=== PATIENT | female | born 1980 | race Caucasian/White ===

== ENCOUNTER 2018-03-29 07:00 | Outpatient (RCR) | payer SELFPAY ==
--- NOTE | 2018-01-19 10:33 | HP.PTEVAL_ITS ---
Patient's Visit Information MORIAH SHAW is a 37 year old F referred to Physical Therapy by [facility] Town [facility] with a diagnosis of SI pain, R shoulder hypomobility. Date of Evaluation: 01/12/18 Physical Therapist: Nabil Burk - Visit Plan Frequency: 2-3x /Week Duration: 4-6 Weeks Plan: Start with core/hip strengthening, lumbar/thoracic DN, thoracic mobility/ strengthening. SI stabilization. Progress to functional strenthening as tolerated. - Subjective Subjective: Pt. is here today for her initial evaluation with reports of increased SI, pelvic pain, but also decreased shoulder ROM on L side. Pt. reports having PT in [place] with focus on manual techniques, dry needling with slight exercises. Pt. moved here recently and has not been doing any exercises, I just forgot them. Pt. reports having frequent upslips of her pevis that causes L clavicle binding. Pt. does yoga fequently and is hopeful to get back to all exercises adn mobility without issues. - Pain L SI region Pain Intensity (Out of 10): 0 Pain Intensity Range: 0, 4 L shoulder Pain Intensity (Out of 10): 0 Pain Intensity Range: 0, 4 L gluteal region Pain Intensity (Out of 10): 0 Pain Intensity Range: 0, 4 - Objective POSTURE: Pt. has rounded shoulders, slgiht FH positioning. Pt. has slight increase in lumbar lordosis and anterior tilted pelvis, but no torsional effect. No upsliped noted. Pt. does have a slight lumbar scoliosis with increased thoracic muscle tissue on R side. PALPATION: Pt. has increased soreness to plaption or bilateral SI joints. Pt. has tenderness at R side of thoracic erector spinea (increased muscle girth noted). Pt. has not pain in L shoulder throughout. NEUROLOGICAL: Pt. has normal sensatino to light and sharp touch of bilateral LEs. PT. is able to rise on heels and toes without LOB. No upper or lower limb tension testing. ROM: Pt. has normal ankle/knee/hip ROM, normal lumbar ROM without increase in symptoms, except mild increase with lumbar ext. Pt. has excessive HS length and hip ER/IR length. MMT: RLE- ankle 5 /5 througout; knee 5/5 throughout; hip-flexion 4/5, abd 4/5, ext 4/5, ER 4/5, IR -4-/5. LLE- ankle/knee 5/5 throughout; hip- flexion 4+/5, abd 4/5, ext 4+/5 , ER 4+/5, IR 4/5. Core strength- fair-. GAIT: pt. has normal gait pattern without incerase in symptoms. Normal step length bilat, normal stair negotiation noted, no increase in pain. - Special Tests L/S Slump test left side: Negative L/S Slump test right side: Negative L/S Left Straight Leg Raise: Negative L/S Right Straight Leg Raise: Negative L/S Instability PA Test: Negative L/S Prone Instability Test: Positive Lumbar Standing: Flexion - Mechanical Response: No effect Lumbar Standing: Flexion - Symptoms During Testing: No effect Lumbar Standing: Flexion - Symptoms After Testing: No effect Lumbar Standing: Extension - Mechanical Response: No effect Lumbar Standing: Extension - Symptoms During Testing: Increases Lumbar Standing: Extension - Symptoms After Testing: No worse Lumbar Standing: Right Side Glides - Mechanical Response: No effect Lumbar Standing: Right Side Wilson - Symptoms During Testing: No effect Lumbar Standing: Right Side Wilson - Symptoms After Testing: No effect Lumbar Standing: Left Side Wilson - Mechanical Response: No effect Lumbar Standing: Left Side Wilson - Symptoms During Testing: No effect Lumbar Standing: Left Side Wilson - Symptoms After Testing: No effect - Goals Goal 1:: Pt. to be I with HEP. Goal Time Frame: 4-6 Weeks Goal 2:: Pt. to have no pain in SI region or lumbar spine with all exericse/ recreational activities. Goal Time Frame: 4-6 Weeks Goal 3:: Pt. to have full lumbar ROM without increase in symptoms. Goal Time Frame: 4-6 Weeks Goal 4:: Pt. to have increased B hip/core strength by 1/2 grade of all effected musculature reducing stress applied to these regions with all functional/ recreational mobility. Goal Time Frame: 4-6 Weeks - Rehabilitation Potential Physical Therapy Diagnosis: Pt. has signs and symptoms consistent with core weakness allowing for increaed instability at SI and lumbar spine. Pt. would benefit from PT to increase core/hip strength, reduce symptoms and instruct in proper body mechanics with all mobility/exercises. Rehabilitation Potential: Excellent - Anticipated Interventions Patient/Client Instruction: Educate patient on: Condition, Plan of Care, Risk Factors, Benefits of Fitness Program For the Purpose of:: To improve health and function, To foster healthy habits, To improve decision making, To facilitate caregiver knowledge, To improve self management, To prevent re-injury, To improve ability to perform tasks related to life management, To improve tolerance to ADL's Therapeutic Exercise to Include: Strength training, Power training, Balance training, Postural training, Flexibilty training, Passive ROM, Active ROM, Dynamic Lumbar Stabilization, Rafael Exercises For the Purpose of:: To decrease pain, To increase ROM, To improve muscle performance and motor function, To improve gait and locomotor functions, To decrease soft tissue restriction, To increase flexibility/ROM, To improve endurance, To improve balance Manual Therapy Techniques to Include: Mobilization, Manipulation, Passive ROM, Functional dry needling, Soft tissue mobilization For the Purpose of:: To decrease pain, To increase ROM, To improve nutrient delivery to tissue, To increase oxygenation perfusion, To improve muscle performance and motor function, To improve ability to perform ADL's IF ES: Yes For the Purpose of:: To decrease pain, To increase ROM, To improve nutrient delivery to tissue Thank you for the opportunity to evaluate your patient. For Medicare and Medicare HMO plans, please review the plan of care and approve it. It will need to be FAXED BACK to us at [phone] for Medicare purposes. Please let me know if there are questions or concerns regarding this plan of care. Physician Signature: Date:
--- NOTE | 2018-08-05 10:17 | HP.PTDCNRP_ITS ---
HP - Discharge Summary (1) - Patient Information MORIAH SHAW was seen in my office for initial evaluation on 01/12/18. The following Plan of Care was established for this patient: Initial Frequency: 2-3x /Week Initial Duration: 4-6 Weeks - Anticipated Interventions Patient/Client Instruction: Educate patient on: Condition, Plan of Care, Risk Factors, Benefits of Fitness Program For the Purpose of:: To improve health and function, To foster healthy habits, To improve decision making, To facilitate caregiver knowledge, To improve self management, To prevent re-injury, To improve ability to perform tasks related to life management, To improve tolerance to ADL's Therapeutic Exercise to Include: Strength training, Power training, Balance training, Postural training, Flexibilty training, Passive ROM, Active ROM, Dynamic Lumbar Stabilization, Rafael Exercises For the Purpose of:: To decrease pain, To increase ROM, To improve muscle performance and motor function, To improve gait and locomotor functions, To decrease soft tissue restriction, To increase flexibility/ROM, To improve endurance, To improve balance Manual Therapy Techniques to Include: Mobilization, Manipulation, Passive ROM, Functional dry needling, Soft tissue mobilization For the Purpose of:: To decrease pain, To increase ROM, To improve nutrient delivery to tissue, To increase oxygenation perfusion, To improve muscle performance and motor function, To improve ability to perform ADL's IF ES: Yes For the Purpose of:: To decrease pain, To increase ROM, To improve nutrient delivery to tissue This patient was last seen in our office . Pertinent comments regarding their Physical therapy will appear below: Patient has not attended physical therapy in over 4 months. Appropriate for d/ c at this time. At this point I will be discontinuing this patient from physical therapy. I would be happy to see this patient again in the future if found appropriate by the physician. Thank you! Germaine Leger
== END 2018-03-29 19:00 | disposition home or self-care (01) ==
LOC: PT 07:00
DX: R69 Illness, unspecified (principal)
CPT/HCPCS: 97162

== ENCOUNTER → 2018-10-04 12:06 | Outpatient (CLI) | payer OTHER, SELFPAY ==
[2018-10-04 13:58] LABS: Absolute Lymphocyte Count 2.17 X10^3/ul (0.83-4.51); Absolute Neutrophil Count 5.4 X10^3/uL (2.0-7.7); Basophil# 0.08 X10^3/uL; Basophil% 0.9 % (0-1); Eosinophil# 0.38 X10^3/uL; Eosinophils% 4.3 % (0-5); Hematocrit 40.6 % (37-47); Hemoglobin 13.3 g/dl (12.0-15.0); Lymphocyte # 2.17 X10^3/ul (4.0); Lymphocyte % 24.5 % (19-41); Mean Corp Hgb Conc 32.8 g/gl (32-36); Mean Corpuscular Hgb 29.2 pg (27.0-32.0); Mean Platelet Vol. 9.9 fl (6.2-12.0); Monocyte# 0.82 X10^3/uL; Monocyte% 9.3 % (0-10); Neutrophil # 5.38 X10^3/uL (2.7-7.7); Neutrophil % 60.7 % (47-70); Platelet Count 446 K/mm3 (150-450); RBC Distribution Width CV 12.2 % (11.6-14.6); RBC Distribution Width SD 39.3 fl (35.1-43.9); Red Blood Count 4.56 M/mm3 (4.2-5.4); White Blood Count 8.9 K/mm3 (4.4-11.0)
[2018-10-04 14:08] LABS: POSITIVE COUNT NO; POSITIVE DIFFERENTIAL NO; POSITIVE MORPHOLOGY NO
[2018-10-04 14:29] LABS: AST(SGOT) 24 U/L (15-37); Alanine Aminotransfer ALT/SGPT 43 U/L (13-56); Alkaline Phosphatase 72 U/L (45-117); Anion Gap 12 (5-15); BUN 8 mg/dL (7-18); Calcium,Total 8.9 mg/dL (8.5-10.1); Chloride 103 mmol/L (98-107); Cholesterol 185 mg/dL (200); EST Glomerular Filtration Rate 85 mL/min (>60); Est Glom Filt Rate - Afr Amer 102 mL/min (>60); Globulin 3.9 g/dL (2.2-4.2); Glucose 78 mg/dL (74-106); High Density Lipoprotein 45 mg/dL; Potassium 4.2 mmol/L (3.5-5.1); Protein, Total 7.9 g/dL (6.4-8.2); Sodium Level 138 mmol/L (136-145); T4 Free Direct 1.23 ng/dL (0.76-1.46); Thyroid Stim Hormone (TSH) 2.21 uIU/mL (0.358-3.74); Triglycerides 77 mg/dL; Very Low Density Lipoprotein 15 mg/dL (5-40)
== END ==
PROVIDERS: Family Provider Internal Medicine; PCP Internal Medicine; Referring Provider Internal Medicine; Visit Provider Internal Medicine
DX: E03.9 Hypothyroidism, unspecified (principal); R19.7 Diarrhea, unspecified
CPT/HCPCS: 36415; 80053; 80061; 84439; 84443; 85025

== ENCOUNTER → 2018-10-06 11:42 | Outpatient (CLI) | payer OTHER, SELFPAY | PROVIDERS: Family Provider Internal Medicine; PCP Internal Medicine; Referring Provider Internal Medicine; Visit Provider Internal Medicine | DX: R19.7 Diarrhea, unspecified (principal) | CPT/HCPCS: 87493 ==

== ENCOUNTER 2019-12-08 09:51 | Outpatient (RCR) | payer MEDICAID, SELFPAY ==
[2019-12-01 13:30] VITALS: BMI 23.2
--- NOTE | 2019-12-08 14:03 | HP.PTEVAL_ITS ---
Patient's Visit Information MORIAH SHAW is a 39 year old F referred to Physical Therapy by ANDREAS Dan with a diagnosis of LBP, SCOLIOSIS. Date of Evaluation: 12/08/19 Physical Therapist: Maura Noble PT, Cert MDT - Visit Plan Frequency: 2-3x /Week Duration: 4-6 Weeks Plan: LAND AND/OR AQUATIC THERAPY FOR PAIN RELIEF, POSTURE CORRECTION/STRENGTHENING, INSTRUCTION IN APPROPRIATE BODY MECHANICS AND ACTIVITY MODIFICATIONS. DLS STARTING WITH A NEUTRAL SPINE PROGRESSING ROM TOLERATED. BRITNEY LE ROM, STRETCHING AND STRENGTHENING. HEP INSTRUCTION. - Subjective Findings: GOES BY ANU. 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 Disability: NO. Present symptoms: LOW BACK SPASMS. INTERMITTENT LEFT THIGH LEG AND FOOT PAIN. PATIENT REPOERTS SHE HAS A HISTORY OF A LOT OF INSTABILITY IN HER BACK. Present since: ABOUT 10 DAYS AGO. Pain Scale: WORST 5/10, LEAT 0/10. Currently: 0/10. Commenced as a result of: FLARE UP DURING YOGA CLASS ABOUT 10 DAYS AGO. Symptoms at onset: LOW BACK PAIN LIMITING MOTION. Worse: ROTATION ESPECIALLY OPENING BODY UP, SOME YOGA POSES, RANDOM. Better: IBUPROFEN, HEAT, LYING IN A RECLINER WITH PILLOW UNDER KNEES, ICE, AVOIDING MOVING, CHIROPRACTIC ADJUSTMENTS. Disturbed sleep: NO. Previous history/Previous treatment: CUPPING, ROLFING, CHIROPRACTOR, EVERYTHING UNDER THE SUN, STRENGTH TRAINING, DRY NEEDLING, OSTEOPATHIC PT, RIGHT HIP IMPIN GEMENT, SCRAPING, ELECTRICAL STIM, TRACTION. NO INJECTIONS. NO BACK SURGERY. HAS NOT HAD A SPINE SURGICAL CONSULT. STATES HER MAIN FOCUS HAS BEEN ON HER HIPS WITH SPECIALISTS IN THE PAST. MUSCLE RELAXERS, STEROIDS AND CHIROPRACTOR ADJUSTMENTS THIS EPISODE. Coughing/sneezing/straining: POSITIVE. Gait: BACK ARCH'S BUT GETTING BETTER. Difficulty initiating urinatin: NO. Accidents: NO. Unexplained weight loss: NO. Imaging: NONE RECENT. MRI AT SOME POINT. PMH: HYPOTHYROIDISM. Recent major surgery: NO. PLOF (Prior Level of Function): PATIENT REPORTS THAT 2 WEEKS AGO BEFORE THE YOGA CLASS SHE WAS FUNCTIONING NORMALLY WITHOUT ANY LIMITATIONS. OTHER: I HAVE SCOLIOSIS. PATIENT REPORTS CHIROPRACTIC HAS BEEN THE SIGNIFICANT RELIEF. I HAVE STUFF GOING ON WITH MY SI JOINTS AND SACRUM. I AM SO IRRITATED AND GET EMOTIONAL BECAUSE I HAD AN EPISODE WITH THIS LAST FALL TOO. PATIENT REPORTS SHE EX'S DAILY WHEN ABLE. 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 - Objective Sitting/Standing Posture: SCOLIOSIS. LUMBAR EXTENSION. Active Correction of posture: INCREASES TIGHTNESS AROUND LEFT HIP AND IN LOW BACK. Other Observations: PATIENT STARTED CRYING DURING SUBJECTIVE PORTION OF EXAM EXPRESSING A LOT OF FRUSTRATION WITH HER CURRENT CONDITION. Motor deficit: BRITNEY LE'S 5/5 EXCEPT LEFT HIP FLEX 4/5 AND RIGHT HIP EXT AND ABD 4/5. Sensory deficit: ALTERED SENSATION OF LEFT LATERAL CALF COMPARED TO RIGHT. ROM deficit: BRITNEY LE'S WFL. Reflexes: 2/3 BRITNEY LE'S. Dural Signs: NEGATIVE RIGHT LE. POSITIVE LLE. Lumbar mvmt loss: flex - NIL - A LITTLE TIGHTNESS L LOW BACK ON RETURN. ext - MOD TO ENMANUEL - GETS PAINFUL IN THE MIDDLE OF LOW BACK. R SG - MIN. L SG - MOD TO ENMANUEL - PINCHING RIGHT AND CENTRAL LOW BACK. Palpation: NO ACUTE TENDERNESS WITH PALPATION OF LOWER THORACIC, LUMBAR, SACRAL, PELVIC OR HIP REGIONS. INCREASED MUSCLE TONE BRITNEY PARASPINALS. - Goals Goal 1:: DECREASE C/O BACK AND LE SX'S. Goal Time Frame: 4-6 Weeks Goal 2:: IMPROVE PERSONAL CARE, LIFTING, WALKING, SITTING, STANDING, SOCIAL LIFE, TRAVEL AND HOMEMAKING FUNCTION. Goal Time Frame: 4-6 Weeks Goal 3:: INSTRUCT IN PROPHYLAXIS Goal Time Frame: 4-6 Weeks - Rehabilitation Potential Rehabilitation Potential: Fair - Anticipated Interventions Patient/Client Instruction: Educate patient on: Condition, Plan of Care, Risk Factors, Benefits of Fitness Program For the Purpose of:: To improve self management Therapeutic Exercise to Include: Strength training, Body mechanics, Postural training, Flexibilty training, In an aquatic setting, Dynamic Lumbar Stabilization For the Purpose of:: To decrease pain, To increase ROM, To improve muscle performance and motor function, To increase tolerance to activity/condition/position, To improve ability of physical actions for home/community/work/leisure Thank you for the opportunity to evaluate your patient. For Medicare and Medicare HMO plans, please review the plan of care and approve it. It will need to be FAXED BACK to us at [phone] for Medicare purposes. For Medicare only, by signing this I certify the plan of care. Please let me know if there are questions or concerns regarding this plan of care. Physician Signature: Date:
--- NOTE | 2019-12-22 12:11 | HP.PTDCSUM ---
HP - PT D/C Summary It has been my pleasure to treat MORIAH SHAW under orders from Petros Henderson, ANA MARIA-C, for the diagnosis of LBP, SCOLIOSIS for a total of 1 visit(s). Discharge Date: Please see the following information for a summary of their discharge status. - Goals Goal 1:: DECREASE C/O BACK AND LE SX'S. Goal 2:: IMPROVE PERSONAL CARE, LIFTING, WALKING, SITTING, STANDING, SOCIAL LIFE, TRAVEL AND HOMEMAKING FUNCTION. Goal 3:: INSTRUCT IN PROPHYLAXIS - Plan Plan: LAND AND/OR AQUATIC THERAPY FOR PAIN RELIEF, POSTURE CORRECTION/STRENGTHENING, INSTRUCTION IN APPROPRIATE BODY MECHANICS AND ACTIVITY MODIFICATIONS. DLS STARTING WITH A NEUTRAL SPINE PROGRESSING ROM TOLERATED. BRITNEY LE ROM, STRETCHING AND STRENGTHENING. HEP INSTRUCTION. - D/C Information If there are questions or concerns regarding this patient's physical therapy, please feel free to call me at [phone]. Thank you for the referral of this patient. Sincerely, Maura Noble, PT, Cert MDT
== END 2019-12-08 19:00 | disposition home or self-care (01) ==
LOC: PT 09:51
PROVIDERS: Family Provider Internal Medicine; PCP Internal Medicine; Referring Provider Nurse Practitioner Family; Visit Provider Nurse Practitioner Family
DX: M54.5 Low back pain (principal); M41.9 Scoliosis, unspecified
CPT/HCPCS: 97162

== ENCOUNTER → 2019-12-08 11:43 | Outpatient (CLI) | payer MEDICAID, SELFPAY ==
[2019-12-01 13:30] VITALS: BMI 23.2
[2019-12-08 13:57] LABS: T4 Free Direct 1.26 ng/dL (0.76-1.46); Thyroid Stim Hormone (TSH) 2.32 uIU/mL (0.358-3.74)
== END ==
PROVIDERS: PCP Internal Medicine; Visit Provider Nurse Practitioner Family
DX: E03.9 Hypothyroidism, unspecified (principal); M54.5 Low back pain; M41.9 Scoliosis, unspecified
CPT/HCPCS: 36415; 84439; 84443; 97162

== ENCOUNTER → 2019-12-29 | Outpatient (CLI) | payer MEDICAID, SELFPAY ==
[2019-12-29 11:18] VITALS: BMI 23.2
--- NOTE | 2019-12-29 12:43 | RAD_ITS ---
STUDY: X-RAY - LEFT HAND, ATTENTION FOURTH FINGER REASON FOR EXAM: Female, 39 years old. Pain after a fall, unable to completely straighten TECHNIQUE: view(s) of the finger were obtained. COMPARISON: None. FINDINGS: Normal metacarpal head. Normal metacarpophalangeal joint. Normal proximal phalanx. Normal middle phalanx. Normal distal phalanx. Normal proximal interphalangeal joint. Normal distal interphalangeal joint. RAD/Finger(s) Min 2 Views IMPRESSION: Normal x-ray examination of the finger. Electronically Signed: Bernardino Benitez MD at 13:17 EST , Service support ,
== END | disposition home or self-care (01) ==
LOC: MTRAD 12:43
PROVIDERS: PCP Internal Medicine; Referring Provider Nurse Practitioner Family; Visit Provider Nurse Practitioner Family
DX: M79.645 Pain in left finger(s) (principal)
CPT/HCPCS: 73140

== ENCOUNTER → 2020-01-19 | Outpatient (CLI) | payer MEDICAID, SELFPAY ==
[2020-01-19 08:16] VITALS: BMI 23.2
[2020-01-19 12:37] LABS: Absolute Lymphocyte Count 2.18 X10^3/uL (0.83-4.51); Absolute Neutrophil Count 4.6 X10^3/uL (2.0-7.7); Basophil# 0.09 X10^3/uL; Basophil% 1.1 % (0-1); Eosinophil# 0.44 X10^3/uL; Eosinophils% 5.4 % (0-5); Hematocrit 39.3 % (37-47); Lymphocyte # 2.18 X10^3/ul (4.0); Lymphocyte % 26.8 % (19-41); Mean Corp Hgb Conc 33.1 g/dL (32-36); Mean Corpuscular Volume 90.8 fL (81-99); Mean Platelet Vol. 10.1 fl (6.2-12.0); Monocyte% 9.8 % (0-10); NRBC Flagged by Analyzer 0 % (0-5); Neutrophil # 4.58 X10^3/uL (2.7-7.7); Neutrophil % 56.4 % (47-70); Platelet Count 319 K/mm3 (150-450); RBC Distribution Width CV 12.1 % (11.6-14.6); RBC Distribution Width SD 40.1 fl (35.1-43.9); Red Blood Count 4.33 M/mm3 (4.2-5.4); White Blood Count 8.1 K/mm3 (4.4-11.0)
[2020-01-19 13:02] LABS: Anion Gap 5 (5-15); BUN 10 mg/dL (7-18); BUN/Creat Ratio 13.1 RATIO (10-20); Calcium,Total 8.8 mg/dL (8.5-10.1); Chloride 107 mmol/L (98-107); Cholesterol 166 mg/dL (200); Creatinine, Serum 0.76 mg/dL (0.55-1.02); EST Glomerular Filtration Rate 89 mL/min (>60); Est Glom Filt Rate - Afr Amer 108 mL/min (>60); Glucose 80 mg/dL (74-106); High Density Lipoprotein 58 mg/dL; Potassium 4.2 mmol/L (3.5-5.1); Sodium Level 139 mmol/L (136-145); Thyroid Stim Hormone (TSH) 1.53 uIU/mL (0.358-3.74); Triglycerides 58 mg/dL; Very Low Density Lipoprotein 12 mg/dL (5-40)
== END | disposition home or self-care (01) ==
LOC: BIMLAB 08:52
PROVIDERS: PCP Internal Medicine; Referring Provider Nurse Practitioner Family; Visit Provider Nurse Practitioner Family
DX: Z00.00 Encounter for general adult medical examination without abnormal findings (principal); E03.9 Hypothyroidism, unspecified
CPT/HCPCS: 36415; 80048; 80061; 84443; 85025

== ENCOUNTER 2020-01-26 10:31 | Outpatient (RCR) | payer MEDICAID, SELFPAY ==
[2020-01-19 08:16] VITALS: BMI 23.2
== END 2020-02-20 23:59 ==
LOC: NS 10:31
PROVIDERS: PCP Internal Medicine; Visit Provider Nurse Practitioner Family
DX: Z71.3 Dietary counseling and surveillance (principal); R63.5 Abnormal weight gain
CPT/HCPCS: 97802

== ENCOUNTER 2020-03-14 13:00 | Outpatient (RCR) | payer MEDICAID, SELFPAY ==
[2020-01-19 08:16] VITALS: BMI 23.2
== END 2020-03-21 23:59 ==
LOC: NS 13:00
PROVIDERS: PCP Internal Medicine; Visit Provider Nurse Practitioner Family
DX: Z71.3 Dietary counseling and surveillance (principal); R63.5 Abnormal weight gain
CPT/HCPCS: 97803

== ENCOUNTER 2020-04-09 13:00 | Outpatient (RCR) | payer MEDICAID, SELFPAY ==
[2020-01-19 08:16] VITALS: BMI 23.2
== END 2020-04-21 23:59 ==
LOC: NS 13:00
PROVIDERS: PCP Internal Medicine; Visit Provider Nurse Practitioner Family
DX: Z71.3 Dietary counseling and surveillance (principal); R63.5 Abnormal weight gain
CPT/HCPCS: 97803

== ENCOUNTER 2020-05-14 13:30 | Outpatient (RCR) | payer MEDICAID, SELFPAY ==
[2020-01-19 08:16] VITALS: BMI 23.2
== END 2020-05-21 23:59 ==
LOC: NS 13:30
PROVIDERS: PCP Internal Medicine; Visit Provider Nurse Practitioner Family
DX: Z71.3 Dietary counseling and surveillance (principal); R63.5 Abnormal weight gain
CPT/HCPCS: 97803

== ENCOUNTER 2020-06-11 13:30 | Outpatient (RCR) | payer MEDICAID, SELFPAY ==
[2020-01-19 08:16] VITALS: BMI 23.2
== END 2020-06-21 23:59 ==
LOC: NS 13:30
PROVIDERS: PCP Internal Medicine; Visit Provider Nurse Practitioner Family
DX: Z71.3 Dietary counseling and surveillance (principal); R63.5 Abnormal weight gain
CPT/HCPCS: 97803

== ENCOUNTER 2020-07-09 15:07 | Outpatient (RCR) | payer MEDICAID, SELFPAY ==
[2020-01-19 08:16] VITALS: BMI 23.2
== END 2020-07-22 23:59 ==
LOC: NS 15:07
PROVIDERS: PCP Internal Medicine; Visit Provider Nurse Practitioner Family
DX: Z71.3 Dietary counseling and surveillance (principal); R63.5 Abnormal weight gain
CPT/HCPCS: 97803

== ENCOUNTER → 2020-07-19 | Outpatient (CLI) | payer MEDICAID, SELFPAY ==
[2020-07-19 08:33] VITALS: BMI 23.2
[2020-07-19 11:55] LABS: Absolute Lymphocyte Count 1.81 X10^3/uL (0.83-4.51); Basophil# 0.12 X10^3/uL; Basophil% 1.5 % (0-1); Eosinophil# 0.42 X10^3/uL; Eosinophils% 5.1 % (0-5); Hematocrit 38.9 % (37-47); Hemoglobin 12.8 g/dL (12.0-15.0); Lymphocyte # 1.81 X10^3/ul (4.0); Lymphocyte % 22.1 % (19-41); Mean Corp Hgb Conc 32.9 g/dL (32-36); Mean Corpuscular Hgb 30.2 pg (27.0-32.0); Mean Corpuscular Volume 91.7 fL (81-99); Mean Platelet Vol. 10.6 fl (6.2-12.0); Monocyte# 0.79 X10^3/uL; Monocyte% 9.6 % (0-10); NRBC Flagged by Analyzer 0 % (0-5); Neutrophil # 5.02 X10^3/uL (2.7-7.7); Neutrophil % 61.2 % (47-70); Platelet Count 351 K/mm3 (150-450); RBC Distribution Width CV 12.2 % (11.6-14.6); RBC Distribution Width SD 40.3 fl (35.1-43.9); Red Blood Count 4.24 M/mm3 (4.2-5.4); White Blood Count 8.2 K/mm3 (4.4-11.0)
[2020-07-19 12:44] LABS: ALB/GLOB Ratio 1.2 RATIO (0.9-2.4); AST(SGOT) 13 U/L (15-37); Alanine Aminotransfer ALT/SGPT 17 U/L (13-56); Albumin, Serum 4.1 g/dL (3.2-5.0); Alkaline Phosphatase 61 U/L (45-117); Anion Gap 6 (5-15); BUN 8 mg/dL (7-18); BUN/Creat Ratio 10.6 RATIO (10-20); Calcium,Total 8.7 mg/dL (8.5-10.1); Chloride 108 mmol/L (98-107); Creatinine, Serum 0.75 mg/dL (0.55-1.02); EST Glomerular Filtration Rate 90 mL/min (>60); Est Glom Filt Rate - Afr Amer 109 mL/min (>60); Globulin 3.3 g/dL (2.2-4.2); Glucose 86 mg/dL (74-106); Potassium 4.5 mmol/L (3.5-5.1); Protein, Total 7.4 g/dL (6.4-8.2); Sodium Level 141 mmol/L (136-145); Thyroid Stim Hormone (TSH) 2.28 uIU/mL (0.358-3.74)
== END | disposition home or self-care (01) ==
LOC: BIMLAB 09:01
PROVIDERS: PCP Internal Medicine; Referring Provider Internal Medicine; Visit Provider Internal Medicine
DX: E03.9 Hypothyroidism, unspecified (principal); F32.9 Major depressive disorder, single episode, unspecified; F41.9 Anxiety disorder, unspecified
CPT/HCPCS: 36415; 80053; 84443; 85025

== ENCOUNTER 2020-07-23 14:18 | Outpatient (RCR) | payer MEDICAID, SELFPAY ==
[2020-07-19 08:33] VITALS: BMI 23.2
== END 2020-07-23 23:59 | disposition home or self-care (01) ==
LOC: NS 14:18
PROVIDERS: PCP Internal Medicine; Visit Provider Nurse Practitioner Family
DX: Z71.3 Dietary counseling and surveillance (principal); R63.5 Abnormal weight gain
CPT/HCPCS: 97803

== ENCOUNTER → 2021-08-04 15:01 | Outpatient (CLI) | payer MEDICAID, SELFPAY ==
[2021-08-04 16:43] LABS: Absolute Neutrophil Count 6.3 X10^3/uL (2.0-7.7); Eosinophil# 0.16 X10^3/uL; Eosinophils% 1.6 % (0-5); Hematocrit 39.4 % (37-47); Hemoglobin 12.8 g/dL (12.0-15.0); Lymphocyte % 22.7 % (19-41); Mean Corp Hgb Conc 32.5 g/dL (32-36); Mean Corpuscular Hgb 29.8 pg (27.0-32.0); Mean Corpuscular Volume 91.6 fL (81-99); Mean Platelet Vol. 10.6 fl (6.2-12.0); Monocyte# 0.88 X10^3/uL; Monocyte% 9.1 % (0-10); NRBC Flagged by Analyzer 0 % (0-5); Neutrophil # 6.32 X10^3/uL (2.7-7.7); Neutrophil % 65.1 % (47-70); Platelet Count 340 K/mm3 (150-450); RBC Distribution Width SD 40.4 fl (35.1-43.9); White Blood Count 9.7 K/mm3 (4.4-11.0)
[2021-08-04 17:21] LABS: AST(SGOT) 20 U/L (15-37); Alanine Aminotransfer ALT/SGPT 27 U/L (13-56); Albumin, Serum 3.7 g/dL (3.2-5.0); Alkaline Phosphatase 64 U/L (45-117); Anion Gap 8 (5-15); BUN 12 mg/dL (7-18); Calcium,Total 8.5 mg/dL (8.5-10.1); Chloride 105 mmol/L (98-107); Cholesterol 152 mg/dL (200); Creatinine, Serum 0.92 mg/dL (0.55-1.02); EST Glomerular Filtration Rate 71 mL/min (>60); Est Glom Filt Rate - Afr Amer 86 mL/min (>60); Globulin 3.6 g/dL (2.2-4.2); Glucose 92 mg/dL (74-106); High Density Lipoprotein 55 mg/dL; Potassium 3.7 mmol/L (3.5-5.1); Protein, Total 7.3 g/dL (6.4-8.2); Sodium Level 138 mmol/L (136-145); Thyroid Stim Hormone (TSH) 1.49 uIU/mL (0.358-3.74); Triglycerides 86 mg/dL; Very Low Density Lipoprotein 17 mg/dL (5-40)
== END ==
PROVIDERS: PCP Internal Medicine; Visit Provider Internal Medicine
DX: E03.9 Hypothyroidism, unspecified (principal); F32.9 Major depressive disorder, single episode, unspecified; F41.9 Anxiety disorder, unspecified
CPT/HCPCS: 36415; 80053; 80061; 84443; 85025

== ENCOUNTER → 2022-04-21 | Outpatient (CLI) | payer OTHER, SELFPAY ==
[2022-04-21 13:51] LABS: Bacteria 0 SEEN /hpf (None Seen); Mucous, Urine 0 SEEN /hpf (<or=2+); Red Blood Cells-Urine 0 SEEN /hpf (0-5); Squamous Epithelial Cells - UA 0 SEEN /hpf (5-10); White Blood Cells 0 SEEN /hpf (0-5)
[2022-04-21 14:52] LABS: Color, Urine Straw (Yellow); Glucose, Dipstick Normal (Normal); Ketone-Dipstick Negative (Negative); Leukocyte Esterase-Dipstick Negative /ul (Negative); Nitrite-Dipstick Negative (Negative); Occult Blood-Urine Negative /ul (Negative); Protein-Dipstick Negative (Negative); Urine Bilirubin Dipstick Negative (Negative); Urine Clarity Clear (Clear); Urine Urobilinogen Normal (Normal); Urine pH 6.5 (5.0 - 8.0)
[2022-04-21 14:53] LABS: Absolute Lymphocyte Count 3.16 X10^3/uL (0.83-4.51); Absolute Neutrophil Count 10.2 X10^3/uL (2.0-7.7); Basophil# 0.12 X10^3/uL; Basophil% 0.8 % (0-1); Eosinophil# 0.26 X10^3/uL; Eosinophils% 1.7 % (0-5); Hematocrit 38.4 % (37-47); Hemoglobin 13.1 g/dL (12.0-15.0); Lymphocyte # 3.16 X10^3/ul (0.83-4.51); Lymphocyte % 20.4 % (19-41); Mean Corp Hgb Conc 34.1 g/dL (32-36); Mean Corpuscular Hgb 30.8 pg (27.0-32.0); Mean Corpuscular Volume 90.4 fL (81-99); Mean Platelet Vol. 10.5 fl (6.2-12.0); Monocyte# 1.63 X10^3/uL; Monocyte% 10.5 % (0-10); NRBC Flagged by Analyzer 0 % (0-5); Neutrophil # 10.18 X10^3/uL (2.7-7.7); Neutrophil % 65.7 % (47-70); POSITIVE DIFFERENTIAL YES; Platelet Count 345 K/mm3 (150-450); RBC Distribution Width SD 39.4 fl (35.1-43.9); Red Blood Count 4.25 M/mm3 (4.2-5.4); White Blood Count 15.5 K/mm3 (4.4-11.0)
[2022-04-21 15:05] LABS: Differential Indicated SCAN CRITERIA MET
[2022-04-21 15:10] LABS: ALB/GLOB Ratio 1.2 RATIO (0.9-2.4); AST(SGOT) 14 U/L (15-37); Alanine Aminotransfer ALT/SGPT 18 U/L (13-56); Albumin, Serum 3.9 g/dL (3.2-5.0); Alkaline Phosphatase 58 U/L (45-117); Amylase 43 U/L (25-115); Anion Gap 8 (5-15); BUN 11 mg/dL (7-18); BUN/Creat Ratio 13.6 RATIO (10-20); Calcium,Total 8.6 mg/dL (8.5-10.1); Chloride 103 mmol/L (98-107); Creatinine, Serum 0.81 mg/dL (0.55-1.02); EST Glomerular Filtration Rate 83 mL/min (>60); Est Glom Filt Rate - Afr Amer 100 mL/min (>60); Globulin 3.3 g/dL (2.2-4.2); Glucose 83 mg/dL (74-106); Lipase 94 U/L (73-393); Potassium 3.6 mmol/L (3.5-5.1); Protein, Total 7.2 g/dL (6.4-8.2); Sodium Level 136 mmol/L (136-145)
[2022-04-21 15:49] LABS: Anisocytosis RARE; Macrocytosis RARE; Platelet Estimate ADEQUATE (ADEQ); Red Cell Morphology N CHROM NORMAL (NORM C&C)
[2022-04-23 11:25] LABS: Pathologist Review Reviewed
== END | disposition home or self-care (01) ==
PROVIDERS: PCP Internal Medicine; Visit Provider Physician Assistant
DX: R10.9 Unspecified abdominal pain (principal); R11.10 Vomiting, unspecified
CPT/HCPCS: 36415; 80053; 81001; 82150; 83690; 85025

== ENCOUNTER 2022-04-23 14:12 | Observation (INO) | payer OTHER, SELFPAY ==
[2022-04-23] VITALS (13 sets, daily range): BP systolic 107–128; BP diastolic 56–89; PULSE 54–86; RESP 16–18; TEMP 36.3–37.2; O2SAT 95–100; BMI 26.9
--- NOTE | 2022-04-23 14:44 | EDS_ITS ---
HPI History of Present Illness Chief Complaint: Abd Pain Informant: patient Narrative Narrative: Patient presents with right lower quadrant pain. She states this started Wednesday evening. She was not sure if she was hungry so she ate. But this worsened it. She ended up having some nausea and vomiting. She felt warm but did not have a documented fever. She saw her physician on Wednesday. Blood work was done that showed an elevated white count. They have been arguing with insurance to get a CT scan as an outpatient. She had this today that showed signs of appendicitis. She states the pain is just kind of stayed aching in the right lower quadrant. She is not having so much vomiting now but still has poor appetite. Pain is not worsening but not improving. No prior abdominal surgery. Pressing on it or eating makes it worse. Nothing really makes it better. PFSH PFS Medical History Abdominal pain Depression Elevated blood pressure reading without diagnosis of hypertension Hypothyroid Hypothyroidism Muscle spasm Scoliosis Seasonal allergies Home Medications lactobacillus combination no.9 4 billion cell capsule PO 07/19/20 [History Last Taken Unknown] multivitamin 1 cap PO DAILY 07/19/20 [History Last Taken Unknown] bupropion HCl 100 mg tablet,12 hr sustained-release 100 mg PO Q12H #180 ea 11/10/21 [Rx Last Taken Unknown] levothyroxine 50 mcg tablet 50 mcg PO DAILY #90 tab 11/10/21 [Rx Last Taken Unknown] buspirone 5 mg tablet 5 mg PO BID #180 tab 12/09/21 [Rx Last Taken Unknown] methylprednisolone 4 mg tablets in a dose pack See Rx Instructions PO PER PKG DIR #21 tab 04/17/22 [Rx Last Taken Unknown] Allergy/AdvReac Type Severity Reaction Status Date / Time mold Allergy Unknown Unknown Verified 04/23/22 14:13 ragweed pollen Allergy Unknown Unknown Verified 04/23/22 14:13 Family History Mother Arthritis Grandmother Arthritis Colon cancer Osteoporosis Parkinson disease Skin cancer Diabetes Grandfather Colon cancer Skin cancer Diabetes Grandmother Depression Heart disease Mental disorder COPD (chronic obstructive pulmonary disease) Grandfather Cancer Brother small cell adenocarcinoma Surgical History History of arthroscopic knee surgery History of tonsillectomy Social History Smoking Status: Never smoker alcohol intake: current alcohol intake frequency: a few times a week Alcohol type: wine substance use type: does not use what type of physical activity do you participate in: none ROS ROS ED Constitutional Constitutional ED: Reports subjective ENT ENT ED: Denies rhinorrhea Cardiovascular Cardiovascular: Denies chest pain or palpitations Respiratory/Chest Respiratory/Chest: Denies cough or dyspnea Gastrointestinal Gastrointestinal: Reports abdominal pain, nausea and vomiting; Denies diarrhea Genitourinary Genitourinary ED: Denies dysuria Musculoskeletal Musculoskeletal: Denies myalgias Integumentary Denies rash Neurologic Neurologic: Denies headache(s) Psychiatric Psychiatric: Reports depression Endocrine Endocrinology: Denies polydipsia or polyuria Allergic/Immunologic Allergic/Immunologic ED: Denies urticaria EXAM Physical Exam Const Vital Signs: 04/23/22 14:14 04/23/22 14:46 04/23/22 15:02 Temperature 98.3 F 98.9 F 98.9 F Temperature Source Temporal Temporal Temporal Pulse Rate 74 68 72 Respiratory Rate 18 16 16 Blood Pressure 128/89 H 125/77 H 122/74 H Blood Pressure Mean 102 93 90 Blood Pressure Source Monitor Blood Pressure Position Semi-Fowlers Blood Pressure Location Left Arm Pulse Ox 98 98 98 Oxygen Delivery Method Room Air Room Air Room Air 04/23/22 15:20 04/23/22 15:24 Temperature 98.4 F 98.9 F Temperature Source Temporal Temporal Pulse Rate 86 72 Respiratory Rate 16 16 Blood Pressure 126/72 H 126/78 H Blood Pressure Mean 90 94 Blood Pressure Source Blood Pressure Position Blood Pressure Location Pulse Ox 98 99 Oxygen Delivery Method Room Air Room Air Positive well nourished and well developed General Appearance ED: well developed and NAD; Negative for cyanotic or diaphoretic HEENT Reports moist mucous membranes Eyes General Eye ED: Negative for pale conjunctiva or scleral icterus Resp normal respiratory effort and clear to auscultation bilaterally Cardio regular rate and regular rhythm GI normal to inspection, nondistended, normoactive bowel sounds GI Narrative: Patient does have mild tenderness to right lower quadrant. No rebounding and no guarding. Bowel sounds still sound normal. Palpation: soft Back/Spine no CVA tenderness Neuro oriented x3 Sensorium / Orientation: alert Psych mental status grossly normal Skin no rashes or lesions noted MDM MDM MDM Narrative Medical decision making narrative: I did look at the patient's blood work from couple days ago. We will will repeat some of this here today. I looked at her scan images. She does have a slightly enlarged appendix with slight stranding. I discussed case with Dr. Cedillo. He requested EKG and COVID. These and repeat blood work are pending. Plan is surgery. Lab Data Attestation: I reviewed the patient's lab results. Labs: Laboratory Results - last 24 hr 04/23/22 04/23/22 04/23/22 14:45 14:45 14:45 WBC 11.9 H RBC 4.56 Hgb 13.9 Hct 41.4 MCV 90.8 MCH 30.5 MCHC 33.6 RDW Std Deviation 39.0 RDW Coeff of Miladys 11.8 Plt Count 403 MPV 9.9 Immature Gran % (Auto) 0.700 Neut % (Auto) 54.0 Lymph % (Auto) 32.9 [place] % (Auto) 9.0 Eos % (Auto) 2.4 Baso % (Auto) 1.0 Absolute Neuts (auto) 6.4 Absolute Lymphs (auto) 3.92 Nucleated RBC % 0 Sodium 138 Potassium 3.5 Chloride 103 Carbon Dioxide 27.0 Anion Gap 8 BUN 9 Creatinine 0.80 Estim Creat Clear Calc 89.08 Est GFR (MDRD) Af Amer 101 Est GFR (MDRD) Non-Af 83 BUN/Creatinine Ratio 11.2 Glucose 89 Calcium 8.7 Serum , Qual NEGATIVE Urine Color Urine Clarity Urine pH Ur Specific Margie Urine Protein Urine Glucose (UA) Urine Ketones Urine Occult Blood Urine Nitrite Urine Bilirubin Urine Urobilinogen Ur Leukocyte Esterase Urine RBC Urine WBC Ur Squamous Epith Cells Urine Bacteria Urine Mucus 04/23/22 14:45 WBC RBC Hgb Hct MCV MCH MCHC RDW Std Deviation RDW Coeff of Miladys Plt Count MPV Immature Gran % (Auto) Neut % (Auto) Lymph % (Auto) [place] % (Auto) Eos % (Auto) Baso % (Auto) Absolute Neuts (auto) Absolute Lymphs (auto) Nucleated RBC % Sodium Potassium Chloride Carbon Dioxide Anion Gap BUN Creatinine Estim Creat Clear Calc Est GFR (MDRD) Af Amer Est GFR (MDRD) Non-Af BUN/Creatinine Ratio Glucose Calcium Serum , Qual Urine Color Straw Urine Clarity Clear Urine pH 6.5 Ur Specific Margie 1.005 Urine Protein 15 H Urine Glucose (UA) Normal Urine Ketones 50 H Urine Occult Blood Negative Urine Nitrite Negative Urine Bilirubin Negative Urine Urobilinogen Normal Ur Leukocyte Esterase Negative Urine RBC 0 SEEN Urine WBC 0 SEEN Ur Squamous Epith Cells 0 SEEN Urine Bacteria 0 SEEN Urine Mucus 0 SEEN EKG Initial EKG: Comments: EKG done as part of preop orders read by me shows normal sinus rhythm with slight sinus arrhythmia. Overall rate of 62. No ventricular ectopy. OH interval, QRS duration and QTc normal. Discharge Plan Dx/Rx/DC Orders Clinical Impression: Acute appendicitis Disposition Disposition: Acute Care Hospital [facility] Discharge Date/Time: 04/23/22 15:34
--- NOTE | 2022-04-23 14:48 | EKG12_ITS ---
Test Reason : Blood Pressure : / mmHG Vent. Rate : 062 BPM Atrial Rate : 062 BPM P-R Int : 130 ms QRS Dur : 080 ms QT Int : 450 ms P-R-T Axes : 063 069 041 degrees QTc Int : 456 ms Normal sinus rhythm with sinus arrhythmia Normal ECG Confirmed by GAEL PANCHAL, DAX ([id number]), editor publications CRISTO JENKINS ([id number]) on 04/27/2022 12:50:02 PM Referred By: WILL Confirmed By:DAX MAYO MD
--- NOTE | 2022-04-23 14:50 | NURSING ---
NO OLD EKGS
[2022-04-23] MEDS: 0.9% Normal Saline 1,000 ML 1000 ML IV (14:55)
[2022-04-23 15:02] LABS: Bacteria 0 SEEN /hpf (None Seen); Mucous, Urine 0 SEEN /hpf (<or=2+); Red Blood Cells-Urine 0 SEEN /hpf (0-5); Squamous Epithelial Cells - UA 0 SEEN /hpf (5-10); White Blood Cells 0 SEEN /hpf (0-5)
--- NOTE | 2022-04-23 15:03 | NURSING ---
[facility] [place] [facility]
[2022-04-23 15:09] LABS: Absolute Lymphocyte Count 3.92 X10^3/uL (0.83-4.51); Absolute Neutrophil Count 6.4 X10^3/uL (2.0-7.7); Basophil# 0.12 X10^3/uL; Eosinophil# 0.28 X10^3/uL; Eosinophils% 2.4 % (0-5); Hematocrit 41.4 % (37-47); Hemoglobin 13.9 g/dL (12.0-15.0); Lymphocyte # 3.92 X10^3/ul (0.83-4.51); Lymphocyte % 32.9 % (19-41); Mean Corp Hgb Conc 33.6 g/dL (32-36); Mean Corpuscular Hgb 30.5 pg (27.0-32.0); Mean Corpuscular Volume 90.8 fL (81-99); Mean Platelet Vol. 9.9 fl (6.2-12.0); Monocyte# 1.07 X10^3/uL; NRBC Flagged by Analyzer 0 % (0-5); Neutrophil # 6.44 X10^3/uL (2.7-7.7); Platelet Count 403 K/mm3 (150-450); RBC Distribution Width CV 11.8 % (11.6-14.6); Red Blood Count 4.56 M/mm3 (4.2-5.4); White Blood Count 11.9 K/mm3 (4.4-11.0)
[2022-04-23 15:11] LABS: Color, Urine Straw (Yellow); Glucose, Dipstick Normal (Normal); Ketone-Dipstick 50 mg/dl (Negative); Leukocyte Esterase-Dipstick Negative /ul (Negative); Nitrite-Dipstick Negative (Negative); Occult Blood-Urine Negative /ul (Negative); Protein-Dipstick 15 mg/dl (Negative); Specific Gravity, Urine 1.005 (1.002-1.030); Urine Bilirubin Dipstick Negative (Negative); Urine Clarity Clear (Clear); Urine Urobilinogen Normal (Normal); Urine pH 6.5 (5.0 - 8.0)
[2022-04-23 15:29] LABS: Anion Gap 8 (5-15); BUN 9 mg/dL (7-18); BUN/Creat Ratio 11.2 RATIO (10-20); Calcium,Total 8.7 mg/dL (8.5-10.1); Chloride 103 mmol/L (98-107); EST Glomerular Filtration Rate 83 mL/min (>60); Est Glom Filt Rate - Afr Amer 101 mL/min (>60); Estimated Creatinine Clearance 89.08 ml/min; Glucose 89 mg/dL (74-106); Potassium 3.5 mmol/L (3.5-5.1); Sodium Level 138 mmol/L (136-145)
--- NOTE | 2022-04-23 15:37 | PCM.HP.STD ---
HPI - General HPI Narrative MORIAH SHAW, is a 41 F who presents with right lower quadrant pain. Pain started few days ago and has become constant. She did have vomiting a few days ago as well. She is not having any fevers or chills currently but did she did have a fever 3 days ago. [facility] Medical History Abdominal pain Depression Elevated blood pressure reading without diagnosis of hypertension Hypothyroid Hypothyroidism Muscle spasm Scoliosis Seasonal allergies Home Medications lactobacillus combination no.9 4 billion cell capsule PO 07/19/20 [History Last Taken Unknown] multivitamin 1 cap PO DAILY 07/19/20 [History Last Taken Unknown] bupropion HCl 100 mg tablet,12 hr sustained-release 100 mg PO Q12H #180 ea 11/10/21 [Rx Last Taken Unknown] levothyroxine 50 mcg tablet 50 mcg PO DAILY #90 tab 11/10/21 [Rx Last Taken Unknown] buspirone 5 mg tablet 5 mg PO BID #180 tab 12/09/21 [Rx Last Taken Unknown] methylprednisolone 4 mg tablets in a dose pack See Rx Instructions PO PER PKG DIR #21 tab 04/17/22 [Rx Last Taken Unknown] Allergy/AdvReac Type Severity Reaction Status Date / Time mold Allergy Unknown Unknown Verified 04/23/22 14:13 ragweed pollen Allergy Unknown Unknown Verified 04/23/22 14:13 Family History Mother Arthritis Grandmother Arthritis Colon cancer Osteoporosis Parkinson disease Skin cancer Diabetes Grandfather Colon cancer Skin cancer Diabetes Grandmother Depression Heart disease Mental disorder COPD (chronic obstructive pulmonary disease) Grandfather Cancer Brother small cell adenocarcinoma Surgical History History of arthroscopic knee surgery History of tonsillectomy Social History Smoking Status: Never smoker alcohol intake: current alcohol intake frequency: a few times a week Alcohol type: wine substance use type: does not use what type of physical activity do you participate in: none ROS Constitutional Constitutional: Reports anorexia and fever(s); Denies fatigue Eyes Eyes: Denies blurry vision ENT HEENT: Denies abnormal hearing Cardiovascular Cardiovascular: Denies chest pain Respiratory/Chest Respiratory/Chest: Denies cough or dyspnea Gastrointestinal Gastrointestinal: Reports abdominal pain and nausea; Denies constipation, diarrhea or vomiting Musculoskeletal Musculoskeletal: Denies abnormal gait Integumentary Integumentary: Denies jaundice Neurologic Neurologic: Denies dizziness Psychiatric Psychiatric: Denies anxiety Endocrine Endocrinology: Denies heat intolerance Hematologic/Lymphatic Hematologic/Lymphatic: Denies easy bleeding Vital Signs Vital Signs Vital Signs: 04/23/22 14:14 04/23/22 14:46 04/23/22 15:02 Temperature 98.3 F 98.9 F 98.9 F Temperature Source Temporal Temporal Temporal Pulse Rate 74 68 72 Respiratory Rate 18 16 16 Blood Pressure 128/89 H 125/77 H 122/74 H Blood Pressure Mean 102 93 90 Blood Pressure Source Monitor Blood Pressure Position Semi-Fowlers Blood Pressure Location Left Arm Pulse Ox 98 98 98 Oxygen Delivery Method Room Air Room Air Room Air 04/23/22 15:20 04/23/22 15:24 Temperature 98.4 F 98.9 F Temperature Source Temporal Temporal Pulse Rate 86 72 Respiratory Rate 16 16 Blood Pressure 126/72 H 126/78 H Blood Pressure Mean 90 94 Blood Pressure Source Blood Pressure Position Blood Pressure Location Pulse Ox 98 99 Oxygen Delivery Method Room Air Room Air Weight Weight: 172 lb Body Mass Index (BMI) 26.9 Physical Exam Const oriented x3 and no apparent distress Resp normal respiratory effort Cardio regular rate and regular rhythm GI soft to palpation Palpation: tender RLQ Results Lab / Micro Data Result Diagrams: 04/23/22 14:45 04/23/22 14:45 Labs: Laboratory Results - last 24 hr 04/23/22 14:45: WBC 11.9 H, RBC 4.56, Hgb 13.9, Hct 41.4, MCV 90.8, MCH 30.5, MCHC 33.6, RDW Std Deviation 39.0, RDW Coeff of Miladys 11.8, Plt Count 403, MPV 9.9, Immature Gran % (Auto) 0.700, Neut % (Auto) 54.0, Lymph % (Auto) 32.9, [place] % (Auto) 9.0, Eos % (Auto) 2.4, Baso % (Auto) 1.0, Absolute Neuts (auto) 6.4, Absolute Lymphs (auto) 3.92, Nucleated RBC % 0 04/23/22 14:45: Sodium 138, Potassium 3.5, Chloride 103, Carbon Dioxide 27.0, Anion Gap 8, BUN 9, Creatinine 0.80, Estim Creat Clear Calc 89.08, Est GFR (MDRD) Af Amer 101, Est GFR (MDRD) Non-Af 83, BUN/Creatinine Ratio 11.2, Glucose 89, Calcium 8.7 Assessment & Plan Assessment/Plan (1) Acute appendicitis: QUALIFIERS: Acute appendicitis type: unspecified acute appendicitis type Qualified Code(s): K35.80 - Unspecified acute appendicitis PLAN: The patient has retrocecal appendicitis shown on CT scan. She does have mildly elevated white count as well. She has been given antibiotics in the emergency room. I discussed laparoscopic appendectomy with her. I discussed the risks including but not limited to bleeding, infection, injury to other organ such as the bowel, ureter, bladder. Patient understands the risks and is willing to proceed with laparoscopic appendectomy. Jr Cedillo MD Pager: [facility] [address] [place] [address] [address] [place] [address] Office:
[2022-04-23 16:08] LABS: Internal QC Validated? YES +Cl - CLEAR BKGD; Pregnancy, Serum, hCG Quali. NEGATIVE Negative
[2022-04-23] MEDS: Lactated Ringers 1,000 ML 15 ML IV (16:14)
[2022-04-23] MEDS: Bupivacaine Mpf 0.5% 30 ML VIAL (17:05)
--- NOTE | 2022-04-23 17:25 | OP.PCM_ITS ---
Problems Associated Problem List Diagnoses (1) Acute appendicitis: Report of Operation Date of Procedure: 04/23/22 Pre-Operative Diagnosis: Acute appendicitis Post-Operative Diagnosis: Acute appendicitis Surgery/Procedure Performed:: Laparoscopic appendectomy Specimen's removed: Appendix Estimated Blood Loss (mL): 5 Description of Procedure: The patient was brought into the operating room and general anesthesia was induced. The left arm was tucked and the abdomen was prepped and draped in usual sterile fashion. A small midline incision was made superior to the umbilicus and deepened to the level of the fascia. The fascia was elevated and incised. The peritoneum was also elevated and incised. A finger sweep was performed and a balloon trocar was placed into the abdomen and inflated. The abdomen was insufflated to 15 mmHg and the camera was inserted and the abdomen was inspected for any injuries upon entering the abdomen. There were none. The patient was placed in Trendelenburg position and a 5 mm ports placed in the left lower quadrant and suprapubic areas under direct visualization. Next using atraumatic bowel graspers the appendix was identified. The appendix was grasped and elevated and Enseal was used to take down the mesoappendix. A stapler was used to come across the base of the appendix. The appendix was then placed in Endo Catch bag and removed through the umbilical incision. The staple line was inspected and found to be hemostatic and intact. The 2 5 mm ports are removed under direct visualization. The balloon trocar was deflated and removed and all the air was removed from the abdomen. The umbilical incision fascia was closed with an 0 Vicryl [id number] suture. The incisions were then irrigated with saline and dried. Local anesthetic was injected into the incision sites. The skin incisions were then closed with interrupted 4-0 Monocryl suture and Steri- Strips. Bandages were applied and the patient was awoken and taken to PACU in stable condition. Patient tolerated the procedure well. Admit VTE Documentation VTE Mechan Device Prophylaxis: SCD's
[2022-04-23] MEDS: Morphine 2 MG/ML Syringe IV (19:51)
[2022-04-23] MEDS: 0.9% Normal Saline 1,000 ML 60 ML IV (19:51)
[2022-04-23] MEDS: 0.9% Saline Lock 10 ML Syringe IV (21:32)
[2022-04-23] MEDS: busPIRone 5 MG Tablet PO (21:32)
[2022-04-23] MEDS: buPROPion (SR) 100 MG TABLET.SA PO (21:32)
[2022-04-23] MEDS: Ondansetron 4 MG/2 ML Vial IV (21:57)
--- NOTE | 2022-04-24 | APP_PTH ---
PATIENT: MORIAH SHAW LOC: MS3 U#:[id number] AGE/SX: 41/F ROOM: [facility] RE04/23/[address]: Dr. Jr Cedillo MD : 1980 BED: 1 DIS: 04/24/2022 SPEC #: [id number] RECD: 04/24/22 11:50 STATUS: RICKY GARZON #: [id number] MANOJ: 04/24/22 00:[address]: Jr Cedillo DEPT: SURGICAL PATHOLOGY RECD BY: Quintin Fernández ENTERED: 04/24/22 11:50 SP TYPE: APPENDIX OTHR DR: Dr. Tena Verduzco MD Tissues: Appendix, NOS Procedures: Surgery Specimen Level III HEADER OPERATION: Laparoscopic appendectomy PRE-OP DIAGNOSIS: Acute appendicitis TISSUE SUBMITTED: Appendix MICROSCOPIC DIAGNOSIS Appendix, appendectomy: Acute appendicitis and periappendicitis. REKHA:lana 04/27/2022 MICROSCOPIC DESCRIPTION Slides are reviewed. GROSS DESCRIPTION Received in fixative is one container labeled with the patient's name and designated appendix. The specimen consists of a vermiform appendix measuring 8 cm in length and 1 cm in average diameter. No gross perforations are evident. Serial sections do not reveal mass lesions. International Controller sections are submitted in one cassette. / AM:lana 04/24/2022 TC:2 [facility]: [id number]
[2022-04-24 03:06] VITALS: BP 109/59; PULSE 61; RESP 16; TEMP 36.8; O2SAT 98
[2022-04-24] MEDS: Morphine 2 MG/ML Syringe IV (04:32)
[2022-04-24] MEDS: Ondansetron 4 MG/2 ML Vial IV (04:32)
[2022-04-24] MEDS: Levothyroxine 50 MCG Tablet PO (06:23)
[2022-04-24 07:06] VITALS: BP 102/59; PULSE 55; RESP 16; TEMP 36.7; O2SAT 98
--- NOTE | 2022-04-24 07:39 | DS.PCM_ITS ---
Providers Date of Admission: 04/23/22 Primary Care Physician: Dr. Tena Verduzco MD Reason For Visit: APPENDICITIS Diagnosis Discharge Diagnosis (1) Acute appendicitis: Status: Acute Code(s): K35.80 - Unspecified acute appendicitis Qualifiers: Acute appendicitis type: unspecified acute appendicitis type Qualified Code(s): K35.80 - Unspecified acute appendicitis Medications at Discharge Home Medications bupropion HCl 100 mg tablet,12 hr sustained-release 100 mg PO Q12H #180 ea 11/10/21 levothyroxine 50 mcg tablet 50 mcg PO DAILY #90 tab 11/10/21 buspirone 5 mg tablet 5 mg PO BID #180 tab 12/09/21 Multi For Her 1 tab PO DAILY 04/23/22 acetaminophen [Tylenol] 650 mg PO Q4H PRN PRN #0 tab 04/24/22 oxycodone 5 - 10 mg PO Q4H PRN PRN 5 Days #20 tab 04/24/22 Hospital Course Operations appendectomy Summary of Care Provided Hospital Course: Patient presented to the emergency room with acute appendicitis. She was taken for laparoscopic appendectomy. She was admitted to the floor postoperatively and when she was tolerating diet she was discharged home. Weight / BMI Weight Weight: 172 lb Body Mass Index (BMI) 26.9 ABG / Lab / Microbiology Data Result Diagrams: 04/23/22 14:45 04/23/22 14:45 Laboratory: Laboratory Results - last 24 hr 04/23/22 14:45: WBC 11.9 H, RBC 4.56, Hgb 13.9, Hct 41.4, MCV 90.8, MCH 30.5, MCHC 33.6, RDW Std Deviation 39.0, RDW Coeff of Miladys 11.8, Plt Count 403, MPV 9.9, Immature Gran % (Auto) 0.700, Neut % (Auto) 54.0, Lymph % (Auto) 32.9, Grant % (Auto) 9.0, Eos % (Auto) 2.4, Baso % (Auto) 1.0, Absolute Neuts (auto) 6.4, Absolute Lymphs (auto) 3.92, Nucleated RBC % 0 04/23/22 14:45: Sodium 138, Potassium 3.5, Chloride 103, Carbon Dioxide 27.0, Anion Gap 8, BUN 9, Creatinine 0.80, Estim Creat Clear Calc 89.08, Est GFR (MDRD) Af Amer 101, Est GFR (MDRD) Non-Af 83, BUN/Creatinine Ratio 11.2, Glucose 89, Calcium 8.7 04/23/22 14:45: Serum , Qual NEGATIVE 04/23/22 14:45: Urine Color Straw, Urine Clarity Clear, Urine pH 6.5, Ur Specific [place] 1.005, Urine Protein 15 H, Urine Glucose (UA) Normal, Urine Ketones 50 H, Urine Occult Blood Negative, Urine Nitrite Negative, Urine Bilirubin Negative, Urine Urobilinogen Normal, Ur Leukocyte Esterase Negative, Urine RBC 0 SEEN, Urine WBC 0 SEEN, Ur Squamous Epith Cells 0 SEEN, Urine Bacteria 0 SEEN, Urine Mucus 0 SEEN Microbiology: Microbiology 04/23/22 15:00 Nasal Secretion SARS-CoV-2 Antigen (Rapid) - Final D/C Instructions Discharge Diet: Light diet - advance as tolerated Discharge Activity: May Not Drive (for 2-3 days or while taking narcotic pain medications.) and May Shower Lifting Restrictions: 10 lbs for 2 weeks Call your doctor if your incision/area has: Continuous Slow Oozing, Sudden Increased Bleeding, Increased Pain/ Swelling, Increased Redness and Foul Smelling Discharge Call your doctor if you observe: Fever of 101 or Higher Suture Line Care: Avoid Pulling/Pushing and Avoid Pinching/Bending Remove Dressing in: 2 days Cleanse incision/area with: Soap & Water Additional Dressing/Incision Instructions: Keep dressing clean and dry. Change or remove dressing in 2 days. Leave steri strips for 1 week. May protect with a gauze bandaid. Please Follow Up With: Jr Cedillo MD When: Please call to schedule 2 week follow up appointment. [phone] Meaningful Use Info Meaningful Use Diagnoses (Choose all that apply): None applicable Discharge Plan Admission Admit Date/Time: 04/23/22 17:26 Attending Provider: Jr Cedillo Primary Care Provider: Tena Verduzco Discharge Orders/Prescriptions Prescriptions: New acetaminophen [Tylenol] 325 mg Tablet 650 mg PO Q4H PRN PRN (Reason: P/F) Qty: 0 RF: 0 oxycodone 5 mg Tablet 5 - 10 mg PO Q4H PRN PRN (Reason: Pain Score 4-10) 5 Days Qty: 20 RF: 0 Continued Multi For Her 18 mg iron-600 mcg-80 mcg Tablet 1 tab PO DAILY RF: 0 bupropion HCl [Wellbutrin SR] 100 mg tablet sustained-release 12 hr 100 mg PO Q12H Qty: 180 RF: 2 levothyroxine 50 mcg tablet 50 mcg PO DAILY Qty: 90 RF: 2 buspirone 5 mg tablet 5 mg PO BID Qty: 180 RF: 0 Referrals / Follow Up: Tena Verduzco MD [Primary Care Provider] - Disposition Disposition (needs filled in before D/C Order can be placed): Home, Self Care
[2022-04-24 08:47] VITALS: BP 103/69; PULSE 63; RESP 18; TEMP 37.2; O2SAT 98
[2022-04-24] MEDS: busPIRone 5 MG Tablet PO (08:50)
[2022-04-24] MEDS: buPROPion (SR) 100 MG TABLET.SA PO (08:50)
== END 2022-04-24 10:02 | disposition home or self-care (01) ==
LOC: ED 14:52 → SDC 15:01 → AC 15:03 → MS3 16:41 → SDC 19:30 → MS3 19:30
PROVIDERS: Admitting Provider Surgery; Emergency Provider Emergency Medicine; PCP Internal Medicine; Visit Provider Surgery
PROC: 0DTJ4ZZ Resection of Appendix, Percutaneous Endoscopic Approach (ICD-10-PCS; CPT 44970; principal; 2022-04-23 16:00)
DX: K35.80 Unspecified acute appendicitis (principal); F32.A Depression, unspecified; E03.9 Hypothyroidism, unspecified; M41.9 Scoliosis, unspecified; Z79.899 Other long term (current) drug therapy; Z79.890 Hormone replacement therapy; F41.9 Anxiety disorder, unspecified; R03.0 Elevated blood-pressure reading, without diagnosis of hypertension
CPT/HCPCS: 44970; 00840; 74177; 80048; 81001; 84703; 85025; 87811; 88304; 93005; 96374; 96375; 96376; 99218; 99284; J7030; J7120; Q9967; A4216; C1760; G0378; J2405

== ENCOUNTER → 2022-04-23 | Outpatient (CLI) | payer OTHER, SELFPAY ==
--- NOTE | 2022-04-23 10:56 | CT_ITS ---
STUDY: CT ABDOMEN AND PELVIS WITH CONTRAST REASON FOR EXAM: Female, 41 years old. RLQ Pain with radiation to the mid abdomen. Elevated white cell count. RADIATION DOSAGE (If Supplied By Facility): CTDIvol = ( 14.37 ) mGy, DLP = ( 881.66 ) mGycm TECHNIQUE: Transaxial images were obtained from the dome of the diaphragm to the symphysis pubis with oral contrast. Oral and amp;amp;amp; IV Gastrografin and amp;amp;amp; 100mL Isovue-300 was administered. Sagittal and coronal images were reconstructed. Individualized dose optimization techniques were used for this CT. COMPARISON: None. FINDINGS: The visualized lung bases are unremarkable. The visualized portions of the heart are within normal limits. Normal liver. Normal gallbladder and extrahepatic biliary system. Normal spleen. Normal pancreas. There is a small, circumscribed, smooth, low attenuation left adrenal mass, consistent with an adrenal adenoma. This measures 1.4 cm. Normal right adrenal gland. Normal right kidney. Normal left kidney. Normal visualized stomach. Irregular narrowing of the terminal ileum with the thickening of the wall of the ileal wall. Normal colon. There is a tubular, thick-walled appendix (>7mm), consistent with acute appendicitis. The appendix is retrocecal. Increased markings in the surrounding peritoneal fat. Normal abdominal aorta. Normal inferior vena cava. Normal retroperitoneum. Normal urinary bladder. There is a 2.8 cm x 3 cm cyst in the right ovary. IUD is seen within the endometrium. There is a 9.4 mm follicle in the left ovary. Normal abdominal wall. Dextroscoliosis. CT/Abdomen/Pelvis WITH Contrast IMPRESSION: Findings in keeping with a noncomplicated retrocecal appendicitis with the mucosal thickening of the terminal ileum. Right ovarian cyst. Electronically Signed: Armando Mckeon MD at 13:51 EDT ,
== END | disposition home or self-care (01) ==
PROVIDERS: PCP Internal Medicine; Referring Provider Physician Assistant; Visit Provider Physician Assistant
DX: R10.31 Right lower quadrant pain (principal); R11.2 Nausea with vomiting, unspecified
CPT/HCPCS: 74177; Q9967; J2405

== ENCOUNTER → 2022-07-24 | Outpatient (CLI) | payer OTHER, SELFPAY ==
--- NOTE | 2022-07-24 14:35 | RAD_ITS ---
STUDY: X-RAY - RIGHT SHOULDER REASON FOR EXAM: Female, 41 years old. right shoulder pain TECHNIQUE: 3 view(s) of the shoulder. COMPARISON: None. FINDINGS: Normal glenohumeral articulation. Mild acromioclavicular hypertrophy. Normal acromion. Normal humeral head and visualized proximal humerus. The soft tissue structures are unremarkable. Normal visualized pulmonary apex. RAD/Shoulder min 2 Views IMPRESSION: Mild acromioclavicular hypertrophy. Electronically Signed: Petros Solares MD, JUAN MANUEL at 16:58 EDT ,
== END | disposition home or self-care (01) ==
LOC: MTRAD 14:35
PROVIDERS: PCP Internal Medicine; Referring Provider Physician Assistant; Visit Provider Physician Assistant
DX: M25.511 Pain in right shoulder (principal)
CPT/HCPCS: 73030

== ENCOUNTER → 2022-08-12 | Outpatient (CLI) | payer OTHER, SELFPAY ==
--- NOTE | 2022-08-12 14:22 | RAD_ITS ---
STUDY: X-RAY - RIGHT KNEE REASON FOR EXAM: Female, 41 years old. Bilateral knee pain. TECHNIQUE: Lower view(s) of the knee. COMPARISON: None. FINDINGS: Normal visualized distal femur. Normal visualized proximal tibia and fibula. Normal proximal tibiofibular articulation. Normal medial femorotibial compartment. Normal lateral femorotibial compartment. Normal patellofemoral articulation. The soft tissue structures are unremarkable. RAD/Knee 4 or More Views IMPRESSION: Normal x-ray examination of the knee. Electronically Signed: Luther Pal, at 9:29 EDT ,
--- NOTE | 2022-08-12 14:28 | RAD_ITS ---
STUDY: X-RAY - LEFT KNEE REASON FOR EXAM: Female, 41 years old. Bilateral knee pain. TECHNIQUE: 4 view(s) of the knee. COMPARISON: None. FINDINGS: Normal visualized distal femur. Normal visualized proximal tibia and fibula. Normal proximal tibiofibular articulation. Normal medial femorotibial compartment. Normal lateral femorotibial compartment. Normal patellofemoral articulation. The soft tissue structures are unremarkable. RAD/Knee 4 or More Views IMPRESSION: Normal x-ray examination of the knee. Electronically Signed: Luther Pal, at 9:29 EDT ,
[2022-08-12 15:02] LABS: Erythrocyte Sedimentation Rate 1 mm/hr (0-30)
[2022-08-12 15:18] LABS: CRP < 2.90 mg/L (0.0-3.0); Rheumatoid Factor < 10.0 IU/mL (<15)
[2022-08-14 20:43] LABS: ANTINUCLEAR ANTIBODIES DIRECT Negative (Negative)
== END | disposition home or self-care (01) ==
PROVIDERS: PCP Internal Medicine; Referring Provider Nurse Practitioner Family; Visit Provider Nurse Practitioner Family
DX: M25.561 Pain in right knee (principal); M25.562 Pain in left knee
CPT/HCPCS: 36415; 73564; 85652; 86038; 86140; 86225; 86235; 86431

== ENCOUNTER → 2022-09-30 | Outpatient (CLI) | payer OTHER, SELFPAY ==
--- NOTE | 2022-09-30 09:10 | BI_ITS ---
MAMMOGRAPHY - BILATERAL DIAGNOSTIC REASON FOR EXAM: Female, 42 years old. Abnormal screening mammogram. PERTINENT HISTORY: Non-contributory. TECHNIQUE: Digital bilateral breast abelino (3D mammographic acquisition) in the CC and MLO projections. 2-D mediolateral oblique (MLO) and craniocaudad (CC) views of both breasts were obtained. CAD: Full Field Digital Mammography with Computer Added Detection was performed. COMPARISON: Comparison is made with prior outside examination dated 08/05/2021. FINDINGS: Breast Composition: The breasts are heterogeneously dense, which may obscure small masses. There are 2 adjacent nodular densities in the mid depth in the retroareolar region of the left breast. The larger measures 1 cm. Correlation with ultrasound is recommended. Stable small benign-appearing bilateral axillary lymph nodes. No other significant abnormalities are identified. BI/DIAG MAMM W/CAD, BILAT IMPRESSION: Stable examination. Correlation with ultrasound is recommended. ASSESSMENT CATEGORY: BIRADS Category 0: Incomplete. Need additional imaging evaluation. A letter regarding these results will be sent to the patient by the facility within 30 days. Approximately 10% of breast cancers are not detected by mammography. A normal mammogram should not delay biopsy of a clinically suspicious abnormality. Electronically Signed: Armando Mckeon MD at 10:18 EST ,
--- NOTE | 2022-09-30 09:11 | US_ITS ---
STUDY: ULTRASOUND BREAST - RIGHT REASON FOR EXAM: Female, 42 years old. Abnormal screening mammogram. TECHNIQUE: Axial and longitudinal images of the RIGHT breast were performed with a high resolution ultrasound transducer. # OF IMAGES: [id number] COMPARISON: Comparison is made with prior mammogram done earlier today as well as prior outside sonogram dated 08/14/2021. FINDINGS: RIGHT Breast: There is a 5 mm x 10 mm x 5 mm cyst with septation at the 8 o''clock position of breast cysts of the sinus from nipple. This also evidence of a 5 mm x 5 mm x 3 mm cyst and 6 mm x 6 mm x 2 mm cyst at the 10 o''clock percent of breast at 5 cm from the nipple. This is unchanged. IMPRESSION: Stable examination. ASSESSMENT CATEGORY: BIRADS Category 2: Benign. A letter regarding these results will be sent to the patient by the facility within 30 days. Electronically Signed: Armando Mckeon MD at 11:15 EST Reading Location ID and State: [address] [facility] , Service support , STUDY: ULTRASOUND BREAST - LEFT REASON FOR EXAM: Female, 42 years old. Abnormal mammogram. TECHNIQUE: Axial and longitudinal images of the LEFT breast were performed with a high resolution ultrasound transducer. # OF IMAGES: 147 COMPARISON: Comparison is made with prior mammogram done earlier today. FINDINGS: LEFT Breast: At the 12 o''clock position of the left breast at 1 cm from nipple, there is a 3 mm x 2 mm x 2 mm cyst. A similar appearing cyst measuring 3 mm x 4 mm x 2 mm also seen at the 5 o''clock position breast at 3 cm from nipple. This also evidence of a 8 mm x 6 mm x 3 mm cyst with septation at the 10 o''clock position of the breast at 5 cm from nipple. US/Breast Limited Unilateral IMPRESSION: Subcentimeters cysts seen as described. ASSESSMENT CATEGORY: BIRADS Category 2: Benign. A letter regarding these results will be sent to the patient by the facility within 30 days. Electronically Signed: Armando Mckeon MD at 11:17 EST ,
== END | disposition home or self-care (01) ==
PROVIDERS: PCP Internal Medicine; Referring Provider Nurse Practitioner Family; Visit Provider Nurse Practitioner Family
DX: R92.8 Other abnormal and inconclusive findings on diagnostic imaging of breast (principal)
CPT/HCPCS: 76641; 76642; 77062; 77066; G0279

== ENCOUNTER → 2023-03-12 | Outpatient (CLI) | payer OTHER, SELFPAY ==
[2023-03-12 15:40] LABS: Absolute Lymphocyte Count 2.55 X10^3/uL (0.83-4.51); Basophil# 0.09 X10^3/uL; Basophil% 0.9 % (0-1); Eosinophil# 0.19 X10^3/uL; Hematocrit 37.5 % (37-47); Hemoglobin 12.6 g/dL (12.0-15.0); Lymphocyte # 2.55 X10^3/ul (0.83-4.51); Lymphocyte % 26.4 % (19-41); Mean Corp Hgb Conc 33.6 g/dL (32-36); Mean Corpuscular Hgb 30.1 pg (27.0-32.0); Mean Corpuscular Volume 89.7 fL (81-99); Mean Platelet Vol. 9.7 fl (6.2-12.0); Monocyte# 0.83 X10^3/uL; Monocyte% 8.6 % (0-10); NRBC Flagged by Analyzer 0 % (0-5); Neutrophil # 5.97 X10^3/uL (2.7-7.7); Neutrophil % 61.8 % (47-70); Platelet Count 370 K/mm3 (150-450); RBC Distribution Width CV 12.2 % (11.6-14.6); RBC Distribution Width SD 39.6 fl (35.1-43.9); Red Blood Count 4.18 M/mm3 (4.2-5.4); White Blood Count 9.7 K/mm3 (4.4-11.0)
[2023-03-12 16:35] LABS: ALB/GLOB Ratio 1.2 RATIO (0.9-2.4); AST(SGOT) 74 U/L (15-37); Alanine Aminotransfer ALT/SGPT 74 U/L (13-56); Albumin, Serum 4.1 g/dL (3.2-5.0); Alkaline Phosphatase 65 U/L (45-117); Anion Gap 4 (5-15); BUN 10 mg/dL (7-18); BUN/Creat Ratio 12.5 RATIO (10-20); Calcium,Total 9.3 mg/dL (8.5-10.1); Chloride 107 mmol/L (98-107); Cholesterol 174 mg/dL (200); EST Glomerular Filtration Rate 83 mL/min (>60); Est Glom Filt Rate - Afr Amer 101 mL/min (>60); Globulin 3.5 g/dL (2.2-4.2); Glucose 86 mg/dL (74-106); High Density Lipoprotein 56 mg/dL; Potassium 4.1 mmol/L (3.5-5.1); Protein, Total 7.6 g/dL (6.4-8.2); Sodium Level 137 mmol/L (136-145); Thyroid Stim Hormone (TSH) 1.67 uIU/mL (0.358-3.74); Triglycerides 93 mg/dL; Very Low Density Lipoprotein 19 mg/dL (5-40)
== END | disposition home or self-care (01) ==
LOC: BIMLAB 14:33
PROVIDERS: PCP Internal Medicine; Referring Provider Internal Medicine; Visit Provider Internal Medicine
DX: F41.9 Anxiety disorder, unspecified (principal); F32.9 Major depressive disorder, single episode, unspecified; E03.9 Hypothyroidism, unspecified
CPT/HCPCS: 36415; 80053; 80061; 84443; 85025

== ENCOUNTER → 2023-04-23 | Outpatient (CLI) | payer OTHER, SELFPAY ==
[2023-04-23 16:22] LABS: ALB/GLOB Ratio 1.3 RATIO (0.9-2.4); AST(SGOT) 18 U/L (15-37); Alanine Aminotransfer ALT/SGPT 18 U/L (13-56); Albumin, Serum 4.3 g/dL (3.2-5.0); Alkaline Phosphatase 72 U/L (45-117); Anion Gap 5 (5-15); BUN 9 mg/dL (7-18); BUN/Creat Ratio 9.8 RATIO (10-20); Calcium,Total 9.2 mg/dL (8.5-10.1); Chloride 107 mmol/L (98-107); Creatinine, Serum 0.92 mg/dL (0.55-1.02); EST Glomerular Filtration Rate 71 mL/min (>60); Est Glom Filt Rate - Afr Amer 86 mL/min (>60); Globulin 3.3 g/dL (2.2-4.2); Glucose 104 mg/dL (74-106); Potassium 3.7 mmol/L (3.5-5.1); Protein, Total 7.6 g/dL (6.4-8.2); Sodium Level 139 mmol/L (136-145)
[2023-04-30 17:07] LABS: HPV APTIMA, High Risk Negative (Negative)
== END | disposition home or self-care (01) ==
PROVIDERS: Obstetrics & Gynecology; PCP Internal Medicine; Referring Provider Internal Medicine; Visit Provider Internal Medicine
DX: Z12.4 Encounter for screening for malignant neoplasm of cervix (principal); R74.8 Abnormal levels of other serum enzymes
CPT/HCPCS: 36415; 80053; 87624; 88175; G0145

== ENCOUNTER → 2023-09-13 | Outpatient (CLI) | payer OTHER, SELFPAY ==
--- NOTE | 2023-09-13 09:29 | BI_ITS ---
MAMMOGRAPHY - BILATERAL SCREENING REASON FOR EXAM: Female, 43 years old. Routine annual screening examination. PERTINENT HISTORY: Non-contributory. TECHNIQUE: Digital bilateral breast viri (3D mammographic acquisition) in the CC and MLO projections. 2-D mediolateral oblique (MLO) and craniocaudad (CC) views of both breasts were obtained. CAD: Full Field Digital Mammography with Computer Added Detection was performed. COMPARISON: Comparison is made with prior mammogram dated September 30, 2022. FINDINGS: Breast Composition: The breasts are heterogeneously dense, which may obscure small masses. There is a 1.9 cm x 2.1 cm well-defined nodule in the deep upper lateral portion of the right breast. Stable appearance of the tiny nodules in the mid depth of the left breast. These were demonstrated to be cysts on prior sonogram. No other significant abnormalities are identified. BI/SCRN MAMM (CAD)W/VIRI BILAT IMPRESSION: 1.9 cm x 2.1 cm well-defined nodule in the deep upper lateral portion of the right breast. This may represent a cyst. Correlation with ultrasound is recommended. ASSESSMENT CATEGORY: BIRADS Category 0: Incomplete. Need additional imaging evaluation. A letter regarding these results will be sent to the patient by the facility within 30 days. Approximately 10% of breast cancers are not detected by mammography. A normal mammogram should not delay biopsy of a clinically suspicious abnormality. [id number] Electronically Signed: Armando Mckeon MD at 11:09 EDT ,
== END | disposition home or self-care (01) ==
PROVIDERS: PCP Internal Medicine; Referring Provider Obstetrics & Gynecology; Visit Provider Obstetrics & Gynecology
DX: Z12.31 Encounter for screening mammogram for malignant neoplasm of breast (principal)
CPT/HCPCS: 77063; 77067

== ENCOUNTER → 2023-10-12 | Outpatient (CLI) | payer OTHER, SELFPAY ==
--- NOTE | 2023-10-12 09:47 | US_ITS ---
STUDY: ULTRASOUND BREAST - RIGHT REASON FOR EXAM: Female, 43 years old. Abnormal mammogram TECHNIQUE: Axial and longitudinal images of the RIGHT breast were performed with a high resolution ultrasound transducer. # OF IMAGES: 21 COMPARISON: Mammogram from 09/13/2023 FINDINGS: RIGHT Breast: Focused sonographic evaluation of the upper outer quadrant of the right breast performed. Dense fibroglandular tissue is noted. Dense asymmetry in the upper outer right breast as shown on ultrasound represented dense fibroglandular tissue. There is no suspicious shadowing solid lesion, architectural distortion, or clustered shadowing calcifications. US/Breast Limited Unilateral IMPRESSION: No suspicious sonographic findings. However, patient should return in 6 months for diagnostic mammogram to include ultrasound. ASSESSMENT CATEGORY: BIRADS Category 3: Probably Benign - Short-Interval Follow-up Suggested. A letter regarding these results will be sent to the patient by the facility within 30 days. Electronically Signed: Bernardino Benitez MD at 10:09 EST ,
== END | disposition home or self-care (01) ==
PROVIDERS: PCP Internal Medicine; Referring Provider Obstetrics & Gynecology; Visit Provider Obstetrics & Gynecology
DX: N63.11 Unspecified lump in the right breast, upper outer quadrant (principal)
CPT/HCPCS: 76642

== ENCOUNTER → 2024-03-10 | Outpatient (CLI) | payer OTHER, SELFPAY ==
[2024-03-10 15:30] LABS: Absolute Lymphocyte Count 2.05 X10^3/uL (0.83-4.51); Basophil# 0.11 X10^3/uL; Basophil% 1.1 % (0-1); Eosinophil# 0.24 X10^3/uL; Eosinophils% 2.4 % (0-5); Hematocrit 39.2 % (37-47); Hemoglobin 13.3 g/dL (12.0-15.0); Lymphocyte # 2.05 X10^3/ul (0.83-4.51); Lymphocyte % 20.1 % (19-41); Mean Corp Hgb Conc 33.9 g/dL (32-36); Mean Corpuscular Hgb 30.4 pg (27.0-32.0); Mean Corpuscular Volume 89.5 fL (81-99); Mean Platelet Vol. 10.1 fl (6.2-12.0); Monocyte# 0.78 X10^3/uL; Monocyte% 7.7 % (0-10); NRBC Flagged by Analyzer 0 % (0-5); Neutrophil # 6.95 X10^3/uL (2.7-7.7); Neutrophil % 68.2 % (47-70); Platelet Count 366 K/mm3 (150-450); RBC Distribution Width SD 39.5 fl (35.1-43.9); Red Blood Count 4.38 M/mm3 (4.2-5.4); White Blood Count 10.2 K/mm3 (4.4-11.0)
[2024-03-10 16:05] LABS: ALB/GLOB Ratio 1.1 RATIO (0.9-2.4); AST(SGOT) 21 U/L (15-37); Alanine Aminotransfer ALT/SGPT 26 U/L (13-56); Albumin, Serum 3.8 g/dL (3.2-5.0); Alkaline Phosphatase 65 U/L (45-117); Anion Gap 3 (5-15); BUN 10 mg/dL (7-18); BUN/Creat Ratio 13.9 RATIO (10-20); Calcium,Total 8.5 mg/dL (8.5-10.1); Chloride 105 mmol/L (98-107); Cholesterol 188 mg/dL (200); Creatinine, Serum 0.72 mg/dL (0.55-1.02); EST Glomerular Filtration Rate 94 mL/min (>60); Est Glom Filt Rate - Afr Amer 113 mL/min (>60); Globulin 3.5 g/dL (2.2-4.2); Glucose 95 mg/dL (74-106); High Density Lipoprotein 53 mg/dL; Potassium 3.8 mmol/L (3.5-5.1); Protein, Total 7.3 g/dL (6.4-8.2); Sodium Level 135 mmol/L (136-145); Thyroid Stim Hormone (TSH) 1.14 uIU/mL (0.358-3.74); Triglycerides 157 mg/dL; Very Low Density Lipoprotein 31 mg/dL (5-40)
== END | disposition home or self-care (01) ==
LOC: BIMLAB 14:27
PROVIDERS: PCP Internal Medicine; Referring Provider Internal Medicine; Visit Provider Internal Medicine
DX: Z00.00 Encounter for general adult medical examination without abnormal findings (principal); E03.9 Hypothyroidism, unspecified
CPT/HCPCS: 36415; 80053; 80061; 84443; 85025

== ENCOUNTER → 2024-06-12 | Outpatient (CLI) | payer OTHER, SELFPAY ==
[2024-06-12 17:11] LABS: Amphetamine Urine VISTA NEGATIVE (<1000 ng/mL); Barbiturate Urine VISTA NEGATIVE (< 200 ng/mL); Benzodiazepine Urine VISTA NEGATIVE (< 200 ng/mL); Cocaine Urine VISTA NEGATIVE (< 300 ng/mL); Ecstacy Urine VISTA NEGATIVE (< 500 ng/mL); Methadone Urine VISTA NEGATIVE (< 300 ng/mL); PCP Urine VISTA NEGATIVE (< 25 ng/mL); THC Urine VISTA NEGATIVE (< 50 ng/mL); Vista UDS pH Range 5
== END | disposition home or self-care (01) ==
LOC: MTLAB 11:36
PROVIDERS: PCP Internal Medicine; Referring Provider Nurse Practitioner Psychiatric/Mental Health; Visit Provider Nurse Practitioner Psychiatric/Mental Health
DX: F90.9 Attention-deficit hyperactivity disorder, unspecified type (principal)
CPT/HCPCS: 80307

== ENCOUNTER 2025-01-29 08:45 | Day surgery (SDC) | payer OTHER, MEDICAID, SELFPAY ==
[2025-01-29] VITALS (8 sets, daily range): BP systolic 89–112; BP diastolic 62–87; PULSE 72–82; RESP 16; TEMP 36.2–36.4; O2SAT 96–100; BMI 24.1
--- NOTE | 2025-01-29 08:59 | PCM.PRE.AN2 ---
ASA Classification* ASA Classification ASA Classification: 2 Assessment & Plan Anesthesia* Anesthesia Assessment Anesthesia Assessment: Discussed sedation and/or anesthesia options, risks, benefits, and alternatives with patient/parents/legal guardian/POA. Questions invited. The patient/parents/legal guardian/POA seems to understand and agrees to proceed with anesthesia plan. Reviewed the physical assessment, medical history, allergy history and patient home medications list prior to surgery/procedure/anesthetic and documented any changes. Performed airway and anesthesia risk assessments. Anesthesia Type Anesthesia Type: MAC Anesthesia Focused Assessment* Airway Assessment Mouth opens: >3 cm Mallampati Score: II Focused Labs Anesthesia Preop lab: CBC WBC 10.2 K/mm3 (4.4-11.0) 03/10/24 14:03/10/24 RBC 4.38 M/mm3 (4.2-5.4) 03/10/24 14:27 03/10/24 Hgb 13.3 g/dL (12.0-15.0) 03/10/24 14:27 03/10/24 Hct 39.2 % (37-47) 03/10/24 14:27 03/10/24 Plt Count 366 K/mm3 (150-450) 03/10/24 14:27 03/10/24 CHEMISTRY Potassium 3.8 mmol/L (3.5-5.1) 03/10/24 14:27 03/10/24 Sodium 135 mmol/L (136-145) L 03/10/24 14:27 03/10/24 BUN 10 mg/dL (7-18) 03/10/24 14:03/10/24 Creatinine 0.72 mg/dL (0.55-1.02) 03/10/24 14:03/10/24 Glucose 95 mg/dL (74-106) 03/10/24 14:03/10/24 TSH 1.14 uIU/mL (0.358-3.74) 03/10/24 14:27 03/10/24 COAG Pre-Assessment Diagnosis/Proposed Procedure Planned Operative Procedure(s): COLONOSCOPY Anesthesia History Anesthesia History - 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 When Was Last Pacemaker Check QUESTION #4 FULL TEXT: You/Your Family Experience fever (hyperthermia) with Anesthesia Last Oral Intake Last Oral intake: Last Oral Intake NPO since Meds taken in AM with sips of water? Meds patient instructed to take am of surgery PONV PONV - inbound customer service agent: PONV - inbound customer service agent Female Yes 01/26/25 10:51 HX of Motion Sickness Yes 01/26/25 10:51 HX of N/V After Surgery Yes 01/26/25 10:51 Non-Smoker Yes 01/26/25 10:51 Duration of Surgery greater No 01/26/25 10:51 than 60 minutes Number of Risk Factors 4 01/26/25 10:51 PONV Score Severe Risk 01/26/25 10:51 Height & Weight Height & Weight: Anesthesia: Height & Weight Height 5 ft 7 in 01/23/25 08:10 Respiratory Assessment Respiratory Assessment - inbound customer service agent: Respiratory Tract Infection Hx - inbound customer service agent Hx Respiratory Tract Infection No 01/26/25 10:51 STOP Sleep Apnea STOP Sleep Apnea - inbound customer service agent: STOP Sleep Apnea - inbound customer service agent Hx Hypertension No 01/26/25 10:51 Hx Sleep Apnea No 01/26/25 10:51 CPAP No 09/17/22 16:07 BIPAP Do you snore loudly (louder No 01/26/25 10:51 than talking or can be heard Do you often feel tired/ No 01/26/25 10:51 fatigued/ sleepy during daytime? Has anyone observed you stop No 01/26/25 10:51 breathing during sleep? STOP Results Negative 01/26/25 10:51 QUESTION #5 FULL TEXT : Do you snore loudly (louder than talking or can be heard through closed doors)? Tobacco Use History Tobacco Use History - inbound customer service agent: Tobacco Use History - inbound customer service agent Tobacco Use Smoking Status Never smoker 01/26/25 10:51 Hx Tobacco Use No 01/26/25 10:51 Years Smoking Packs Smoked per Day Smoking Cessation Date was within the last 15 years Hx Smoking Cessation Date Hx Smoking Cessation Counseling Hematologic Medial History Hematologic Hx - inbound customer service agent: Hematologic Medical Hx - quality control assessor Hx of Blood Transfusion No 01/26/25 10:51 Hx of Transfusion in last 3 No 01/26/25 10:51 Months Date of Last Transfusion (if within last 3 months) Ever experience any problems No 01/26/25 10:51 with transfusion(s)? Specify any problems Hx of Preganancy in last 3 No 01/26/25 10:51 Months Nurse Filling Out Transfusion [facility] 01/26/25 10:51 & Questions: Date: 01/26/25 01/26/25 10:51 Time: 10:59 01/26/25 10:51 Patient unable to answer at this time (ie. confused, unrespo /Reproduction History /Reproductive History - inbound customer service agent: /Reproductive Hx- inbound customer service agent Hx Now No 01/26/25 10:51 Gestational Age (in weeks): EDC: Hx Hx Para Hx Section SAB No 01/26/25 10:51 PFSH Medical History Wears contact lenses Wears glasses Thyroid disease Bladder disease Easy bruising Non-smoker Family history of malignant neoplasm of colon in relative diagnosed when younger than 50 years of age Impingement of right shoulder Arthritis of right glenohumeral joint Arthrosis of right acromioclavicular joint Right shoulder pain Colon cancer screening Preventative health care Flu vaccine need Elevated liver enzymes Urticaria Arthritis Polyarthralgia Bilateral knee pain Acute appendicitis Elevated blood pressure reading without diagnosis of hypertension Hypothyroidism Muscle spasm Abdominal pain Depression Scoliosis Hypothyroid Seasonal allergies Home Medications ?Medication ?Instructions ?Recorded ?Last Taken ?Type levonorgestrel (Mirena) 1 device intrauterine ONCE 04/23/23 Unknown History bupropion HCl 300 mg 24 hr tablet, 300 mg PO QAM #90 tabs 08/11/24 Unknown Rx extended release levothyroxine 50 mcg tablet See Rx Instructions .Route 01/08/25 Unknown Rx .COMPLEX #90 tabs dextroamphetamine-amphetamine ER 25 mg PO QAM 30 days #30 caps 01/23/25 Unknown Rx 25 mg 24hr capsule,extend release Allergy/AdvReac Type Severity Reaction Status Date / Time mold Allergy Unknown Nasal Verified 01/26/25 10:49 congestion ragweed pollen Allergy Unknown nasal Verified 01/26/25 10:49 congestion Anesthetics - Gloria Type- AdvReac Vomiting Verified 01/26/25 10:49 Parabens (anesthesia - anesthetics) Family History Mother Arthritis Grandmother Arthritis Osteoporosis Parkinson disease Skin cancer Diabetes Colon cancer Dx in her 40's Grandfather Colon cancer Skin cancer Diabetes Grandmother Depression Heart disease Mental disorder COPD (chronic obstructive pulmonary disease) Grandfather Cancer Brother small cell adenocarcinoma Surgical History History of laparoscopic appendectomy History of tonsillectomy History of arthroscopic knee surgery Social History household members: significant other housing: house 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
--- NOTE | 2025-01-29 09:06 | H&P.OPEN ---
[facility] - General General Date of Service: 01/29/25 HPI Narrative MORIAH SHAW, is a 44 F who presents for screening colonoscopy. Patient never had previous colonoscopy. Patient maternal grandmother and grandfather diagnosed with colon cancer --in her 40s for the grandmother, both of her parents have had colonoscopies. Patient has bowel movements daily denies any blood. Patient denies any chronic abdominal pain/nausea/vomiting/reflux. [facility] Medical History Wears contact lenses Wears glasses Thyroid disease Bladder disease Easy bruising Non-smoker Family history of malignant neoplasm of colon in relative diagnosed when younger than 50 years of age Impingement of right shoulder Arthritis of right glenohumeral joint Arthrosis of right acromioclavicular joint Right shoulder pain Colon cancer screening Preventative health care Flu vaccine need Elevated liver enzymes Urticaria Arthritis Polyarthralgia Bilateral knee pain Acute appendicitis Elevated blood pressure reading without diagnosis of hypertension Hypothyroidism Muscle spasm Abdominal pain Depression Scoliosis Hypothyroid Seasonal allergies Home Medications ?Medication ?Instructions ?Recorded ?Last Taken ?Type levonorgestrel (Mirena) 1 device intrauterine ONCE 04/23/23 01/27/25 History bupropion HCl 300 mg 24 hr tablet, 300 mg PO QAM #90 tabs 08/11/24 01/27/25 Rx extended release levothyroxine 50 mcg tablet See Rx Instructions .Route 01/08/25 01/27/25 Rx .COMPLEX #90 tabs dextroamphetamine-amphetamine ER 25 mg PO QAM 30 days #30 caps 01/23/25 01/27/25 Rx 25 mg 24hr capsule,extend release Allergy/AdvReac Type Severity Reaction Status Date / Time mold Allergy Unknown Nasal Verified 01/29/25 09:21 congestion ragweed pollen Allergy Unknown nasal Verified 01/29/25 09:21 congestion Anesthetics - Gloria Type- AdvReac Vomiting Verified 01/29/25 09:21 Parabens (anesthesia - anesthetics) Family History Mother Arthritis Grandmother Arthritis Osteoporosis Parkinson disease Skin cancer Diabetes Colon cancer Dx in her 40's Grandfather Colon cancer Skin cancer Diabetes Grandmother Depression Heart disease Mental disorder COPD (chronic obstructive pulmonary disease) Grandfather Cancer Brother small cell adenocarcinoma Surgical History History of laparoscopic appendectomy History of tonsillectomy History of arthroscopic knee surgery Social History household members: significant other housing: house 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 Smoking Status: Never smoker alcohol intake: current alcohol intake frequency: a few times a week Alcohol type: wine substance use type: does not use caffeine: Yes what type of physical activity do you participate in: none seatbelt use: always do you feel safe at home: Yes additional social history: Boyfriend- Jaron Past Medical/Surgical History Planned Operation Planned Operative Procedure(s): COLONOSCOPY S.O.S: No Previous Hospitalizations/Surgeries HX Hospitalizations: No HX of Surgeries: bartholin cyst removed x2 tonsillectomy knee scope iud Any Problems With Anesthesia: No You/Your Family Experience Fever (Hyperthermia) With Anes: No Cholinesterase deficiency: No Cardiovascular Hx Chest Pain within Last 2 months: No Hx of Irregular Heartbeat and/or Afib: No Hx Heart Attack: No Hx Congestive Heart Failure: No Hx Rheumatic Fever: No Hx Hypertension: No Hx Internal Defibrillator: No Hx Pacemaker: No Hx Cardiac Catheterization: No Hx Cardiac Surgery/Stents/Etc.: No Hx Stress Test: No Hx Pain in Legs when Walking/Leg Cramps: No Respiratory Chronic Cough: No HX of Shortness of Breath: No Hoarseness: No Hx Chronic Obstructive Pulmonary Disease (COPD): No Hx Asthma: No Hx Emphysema: No Hx Sleep Apnea: No CPAP: No Hx Respiratory Tract Infection/Cold (presently): No Do You Snore Loudly (louder than talking or can be heard): No Do You Often Feel Tired/ Fatigued/ Sleepy Dring Daytime?: No Has Anyone Observed You Stop Breathing During Sleep?: No Result (for STOP score): Negative Hx Smoking: No Smoking Status: Never smoker Gastrointestinal Hx Gastrointestinal Disorders: No Hx Gastrointestinal Bleed: No Hx Ulcer: No Hx Hiatal Hernia: No Difficulty Chewing/Swallowing: No Special diet followed at home: Yes (semi vegetarian) Hx Unplanned Weight Loss of 20#: No HX Unplanned Weight Gain of 20#: No Neurological Hx Seizures: No HX Syncope/Blackout Spells/Unconsciousness: No Hx Transient Ischemic Attacks (TIA): No Hx Multiple Sclerosis: No Hx Parkinson's Disease: No Hx Head/Neck Injury: No Hx Headaches: No Hx Back Injury/Pain: No Recent Onset of Speech Difficulty: No Restless Legs: No Does patient have nerve stimulator: No Blood Disorder Hx Leukemia: No Bleeding Tendencies: Yes (easy bruising) Hx Deep Vein Thrombosis: No Hx High Cholesterol: No Blood Transmitted Disease: No Hx Hepatitis: No Hx Cirrhosis: No Hx Anemia: Yes (low iron in the past) Hx Blood Disorders: No Reproduction : No Is Patient Lactating: No Hx Hysterectomy: No Hx Tubal Ligation: No Are You Post Menopause: No Genitourinary Hx Renal Disease: No Musculoskeletal Hx Arthritis: No Hx Rheumatoid Arthritis: No Hx Gout: No Recent Onset of an Orthopedic Problem: No Endocrine Hx Diabetes: No Thyroid Disease: Yes (on med) Hx Steroid Therapy: No Psycho/Social Hx Substance Use: No Hx Alcohol Use: Yes (occ) Hx Anxiety: No Hx Depression: No Mental Illness: No Hx Dementia: No Miscellaneous Hx Cancer: No Recent Exposure to Contagious Disease: No Hx of C-Diff: No Any Loose Teeth: No Allergies mold Allergy (Unknown, Verified 01/29/25 09:21) Nasal congestion ragweed pollen Allergy (Unknown, Verified 01/29/25 09:21) nasal congestion Anesthetics - Gloria Type- Parabens (anesthesia - anesthetics) Adverse Reaction (Verified 01/29/25 09:21) Vomiting Discharge Is Pt Admitted From a Usp, or a Snf: No Who Could Help: PARTNER After D/C, Where Do you Plan to Go: Return Home Physical Exam Const alert, oriented x3 and no apparent distress HEENT normocephalic and head/scalp atraumatic Resp normal respiratory effort Cardio regular rate GI soft to palpation and non-tender; Negative for non-distended Palpation: Negative for guarding Extremity no clubbing, cyanosis or edema Skin no rashes or lesions noted Neuro CN's II-XII intact bilaterally Psych mental status grossly normal Assessment & Plan Assessment/Plan (1) Colon cancer screening: Surgery Risks - Colonoscopy I discussed with the patient the risks of the procedure: Yes Risks Include but are not Limited To: Risks include but are not limited to: Bleeding, perforation requiring further surgery, inability to complete colonoscopy requiring barium enema.
[2025-01-29 09:23] LABS: Internal QC Validated? YES +Cl - CLEAR BKGD
[2025-01-29 09:24] LABS: Pregnancy, Urine Negative Negative
--- NOTE | 2025-01-29 10:12 | PCM.POST.ANE ---
Anesthesia: Postop Eval I Current Vital Signs Temperature: 97.1 F Pulse Rate: 80 Blood Pressure: 92/62 Respiratory Rate: 16 Pulse Ox: 97 Oxygen Delivery Method: Room Air Assessment Airway patent: Yes Spontaneous unlabored respirations: Yes Mental status: Awake and Calm nausea: No Vomiting: No Anesthesia Complication: No Fluid Hydration Crystalloid volume administer (ml): 10 Total IV fluid infused: 10 Progress Note Anesthesia document: Postop Eval 1 completed: Yes
--- NOTE | 2025-01-29 10:20 | OP.COLON_ITS ---
Patient Name: Leonie Parks Procedure Date: 01/29/2025 9:49 AM Date of : 1980 Age: 44 Procedure: Colonoscopy Indications: Screening for colorectal malignant neoplasm Providers: Lucretia Edmondson MD Medicines: Monitored Anesthesia Care Patient Profile: This is a 44 year old female. Last Colonoscopy: none. The patient's first colonoscopy is today. Complications: No immediate complications. Procedure: Pre-Anesthesia Assessment: - Prior to the procedure, a History and Physical was performed, and patient medications and allergies were reviewed. The patient's tolerance of previous anesthesia was also reviewed. The risks and benefits of the procedure and the sedation options and risks were discussed with the patient. All questions were answered, and informed consent was obtained. Prior Anticoagulants: The patient has taken no anticoagulant or antiplatelet agents. ASA Grade Assessment: Per anesthesia. After reviewing the risks and benefits, the patient was deemed in satisfactory condition to undergo the procedure. After I obtained informed consent, the scope was passed under direct vision. Throughout the procedure, the patient's blood pressure, pulse, and oxygen saturations were monitored continuously. The Colonoscope was introduced through the anus and advanced to the cecum, identified by the appendiceal orifice, ileocecal valve and palpation. The colonoscopy was performed without difficulty. The patient tolerated the procedure well. The quality of the bowel preparation was good. Scope In: 9:55:33 AM Scope Withdrawal Time 0 hours 7 minutes 8 seconds Scope Out: 10:11:00 AM Total Procedure Duration Time 0 hours 15 minutes 27 seconds Findings: The perianal and digital rectal examinations were normal. A single small-mouthed diverticulum was found in the sigmoid colon. The exam was otherwise without abnormality on direct and retroflexion views. Non-bleeding internal hemorrhoids were found. The hemorrhoids were Grade I (internal hemorrhoids that do not prolapse). Impression: - Diverticulosis in the sigmoid colon. - The examination was otherwise normal on direct and retroflexion views. - Non-bleeding internal hemorrhoids. - No specimens collected. Recommendation: - Discharge patient to home. - Resume previous diet. - Continue present medications. - Repeat colonoscopy in 10 years for screening purposes. Procedure Code(s): --- Professional --- G0121, PT, Colorectal cancer screening; colonoscopy on individual not meeting criteria for high risk Diagnosis Code(s): --- Professional --- Z12.11, Encounter for screening for malignant neoplasm of colon K64.0, First degree hemorrhoids K57.30, Diverticulosis of large intestine without perforation or abscess without bleeding CPT copyright 2021 [employer]. All rights reserved. The codes documented in this report are preliminary and upon remote medical coder review may be revised to meet current compliance requirements. MD Lucretia Mccoy MD 01/29/2025 10:20:41 AM This report has been signed electronically. Number of Addenda: 0 Note Initiated On: 01/29/2025 9:49 AM
--- NOTE | 2025-01-29 10:21 | OP.CCLET_ITS ---
01/29/2025 Tena Verduzco MD [address] [place] [address] Re : Colonoscopy procedure for Leonie Parks Dear Dr. Verduzco This procedure was performed on Wednesday, January 29, 2025. My impressions and recommendations are as follows: Impressions : - Diverticulosis in the sigmoid colon. - The examination was otherwise normal on direct and retroflexion views. - Non-bleeding internal hemorrhoids. - No specimens collected. Recommendations : - Discharge patient to home. - Resume previous diet. - Continue present medications. - Repeat colonoscopy in 10 years for screening purposes. My findings are described in the full procedure note, which is enclosed. If I can be of further assistance, please feel free to contact me at Doctor phone number(s): , Work: . Sincerely, MD Lucretia Mccoy MD 01/29/2025 10:20:41 AM This report has been signed electronically.
--- NOTE | 2025-01-29 10:56 | POSTOPAN2_ITS ---
Anesthesia Postop Eval I Sum Postop Eval Completion status Anesthesia document: Postop Eval 1 completed: Yes Anesthesia Postop Eval I Summary Anesthesia Postop Eval I Summary: Anesthesia Postop Eval I: Assessment Summary Airway patent Yes 01/29/25 10:17 PAD EXTRACTION TENDER.LMIL Spontaneous unlabored Yes 01/29/25 10:17 PAD EXTRACTION TENDER.LMIL respirations Mental status Awake,Calm 01/29/25 10:17 PAD EXTRACTION TENDER.LMIL nausea No 01/29/25 10:17 PAD EXTRACTION TENDER.LMIL Vomiting No 01/29/25 10:17 PAD EXTRACTION TENDER.LMIL Anesthesia Postop Eval I: Fluid Summary Crystalloid volume administer 10 01/29/25 10:17 PAD EXTRACTION TENDER.LMIL (ml) Colloids volume administered ( ml) Blood Product volume administered (ml) Total IV fluid infused 10 01/29/25 10:17 PAD EXTRACTION TENDER.LMIL Anesthesia Postop Eval I: Summary Notes Anesthesia Complication No 01/29/25 10:17 PAD EXTRACTION TENDER.LMIL Anesthesia Complication Comment: Post-operative progress note Anesthesia: Postop Eval II Evaluation Mental status: Awake Pain Level: 0 nausea: No Vomiting: No
--- NOTE | 2025-01-29 10:56 | PCM.POSTANE2 ---
Anesthesia Postop Eval I Sum Postop Eval Completion status Anesthesia document: Postop Eval 1 completed: Yes Anesthesia Postop Eval I Summary Anesthesia Postop Eval I Summary: Anesthesia Postop Eval I: Assessment Summary Airway patent Yes 01/29/25 10:17 SLURRY PLANT OPERATOR.LMIL Spontaneous unlabored Yes 01/29/25 10:17 SLURRY PLANT OPERATOR.LMIL respirations Mental status Awake,Calm 01/29/25 10:17 SLURRY PLANT OPERATOR.LMIL nausea No 01/29/25 10:17 SLURRY PLANT OPERATOR.LMIL Vomiting No 01/29/25 10:17 SLURRY PLANT OPERATOR.LMIL Anesthesia Postop Eval I: Fluid Summary Crystalloid volume administer 10 01/29/25 10:17 SLURRY PLANT OPERATOR.LMIL (ml) Colloids volume administered ( ml) Blood Product volume administered (ml) Total IV fluid infused 10 01/29/25 10:17 SLURRY PLANT OPERATOR.LMIL Anesthesia Postop Eval I: Summary Notes Anesthesia Complication No 01/29/25 10:17 SLURRY PLANT OPERATOR.LMIL Anesthesia Complication Comment: Post-operative progress note Anesthesia: Postop Eval II Evaluation Mental status: Awake Pain Level: 0 nausea: No Vomiting: No
== END 2025-01-29 11:25 | disposition home or self-care (01) ==
LOC: EN 08:47 → AC 08:49
PROVIDERS: Anesthesiology; PCP Internal Medicine; Referring Provider Internal Medicine; Visit Provider Surgery
PROC: 0DJD8ZZ Inspection of Lower Intestinal Tract, Via Natural or Artificial Opening Endoscopic (ICD-10-PCS; CPT 45378; principal; 2025-01-29 09:25)
DX: Z12.11 Encounter for screening for malignant neoplasm of colon (principal); K57.30 Diverticulosis of large intestine without perforation or abscess without bleeding; K64.0 First degree hemorrhoids; Z80.0 Family history of malignant neoplasm of digestive organs
CPT/HCPCS: 45378; 81025; A4216; J2405